=== PATIENT | female | born 1950 | race Caucasian/White ===

== ENCOUNTER 2019-01-09 18:57 | Inpatient (IN) ==
--- NOTE | 2019-01-10 14:29 | Internal Med History&Physical ---
Addendum entered and electronically signed by Raquel Godinez 01/11/19 17:42: Original Note: Date of Encounter: 01/10/19 Time of Encounter: 14:26 Assessment and Plan (1) Acute on chronic diastolic CHF (congestive heart failure) Current visit: No Status: Acute Patient admitted to this facility for rehabilitation due to deconditioning secondary to her CHF. Lungs are clear throughout upper [place] but noted dim inished throughout lower [place]. Patient remains on Xopenex and currently on Diamox and Bumex. Patient continues to have +2 edema from mid thigh and below. We will continue with daily weights. Patient remains on Coumadin at this time which will be managed by pharmacy. Patient awaits physical therapy evaluation. We will continue with current plan of care (2) COPD with exacerbation Current visit: Yes Status: Chronic Admitted from [facility], who treated her for exacerbation of her COPD and CHF. Patient admitted for rehab strengthening due to deconditioning. Currently noted to have slight dypnea after exertion of ambulating >25. Endorses Orthopnea. No productive cough noted. Will continue on current meds and bronchodialators. Continue BIPAP at night and prn for dyspnea. Physical therapy eval pending. (3) Atrial fibrillation Current visit: Yes Status: Chronic Patient continues with irreg HR at 100-[address] on CM and monitor HR. Continue on current meds. Qualifiers: Atrial fibrillation type: persistent Qualified Code(s): I48.1 - Persistent atrial fibrillation (4) GERD (gastroesophageal reflux disease) Current visit: Yes Status: Chronic No acute issues. Continue on PPI. Qualifiers: Esophagitis presence: without esophagitis Qualified Code(s): K21.9 - Gastro-esophageal reflux disease without esophagitis (5) Essential hypertension Current visit: Yes Status: Chronic VSS. Continue on current meds. Internal Medicine - H&P: HPI Chief complaint: COPD Admitted From: Hospital to Hospital Transfer Plans for Post Hospital Care: Home History of present illness: Ms. Olivier is a 68 year old female with a past medical history significant for COPD on 4 L home oxygen, rate controlled atrial fibrillation anticoagulated with warfarin, lower extremity edema, diastolic heart failure, and recent discharge on 12/10/2018 after treatment of diastolic heart failure exacerbation, A. fib with RVR, and lower extremity edema. She has been hospitalized many times of recent for a fluid overload state requiring high-dose diuretics. She has also been on anticoagulation, rate control agents and dofetilide for atrial fibrillation with a previous recent attempt for NANCI cardioversion was deferred due to an abnormal morphology that would have increased her local for an embolic event. She present for evaluation of malaise, fatigue, and shortness of breath. She reports she began "not feeling very well" in the afternoon. When this persisted she called for EMS transport for evaluation. She was discovered to have bradycardia, EMS did administer atropine with no benefit. There was some thoughts about her mistakenly dosing her metoprolol prior to the admission. She was treated over the last two weeks for her exacerbaton of both COPD and CHF. Patient also was noted to continue to have a high HR while at [facility] and required further Tx for her Afib. Patient arrived at this facility for continued rehab for strengthening due to her deconditioning related to the COPD and CHF. She currently appears relaxed and denies any current discomforts or dyspnea. She was observed by Nursing ambulating in the room to the bathroom with a walker and was noted to become slightly SOB after ambulating >25 ft and had a unsteady gait. Patient states th at she was diuresed while at the hospital, but noted to continue to have +2 edema to the lower extremities from mid-thigh and below. Denies any productive cough. Denies any chest discomforts or palpitations. Past Med Surg Social Fam HX - Past Medical History Medical history: asthma, atrial fibrillation, CHF, COPD, GERD, hypertension, migraine Psychiatric history: no psych history - Past Surgical History Surgical History: cholecystectomy, hysterectomy Additional surgical history: tumor removed from back of right ear, heart cath no stent - Social History Smoking Status: Former smoker Smokeless Tobacco Status: No Alcohol use: none Drug use: none - Family History Brother Living Status: Grandfather Family Member Ethnicity: Non- Living Status: Hx Family Cardiac Disorders: Yes (ME, Afib, HTN) Sister Family Member Ethnicity: Non- Living Status: Hx Family Cardiac Disorders: Yes Hx Family Respiratory Disorders: Yes (COPD) Hx Family GI Disorders: Yes (Stomach ulcers) Mother Adopted: No Family Member Ethnicity: Non- Twin of Family Member: Yes, Fraternal Living Status: Hx Family Cardiac Disorders: Yes Hx Family Respiratory Disorders: Yes Hx Family Cancer: No Hx Family GI Disorders: No Hx Family Endocrine Disorder: No Hx Family Neuromuscular Disorders: No Hx Family Neurologic Disorders: No Hx Family HEENT Disorders: No Hx Family Autoimmune Disorders: No Father Adopted: No Family Member Ethnicity: Non- Twin of Family Member: Yes, Fraternal Living Status: Hx Family Cardiac Disorders: Yes (Afib, HTN, ME) Hx Family Respiratory Disorders: Yes Hx Family Cancer: No Hx Family GI Disorders: No Hx Family Endocrine Disorder: No Hx Family Neuromuscular Disorders: No Hx Family Neurologic Disorders: No Hx Family HEENT Disorders: No Hx Family Autoimmune Disorders: No Internal Medicine - H&P: Meds Alendronate Sodium [Fosamax] 70 mg PO WE 02/17/16 [History] Ascorbate Calcium [Vitamin C] 500 mg PO DAILY 02/17/16 [History] Tiotropium [Spiriva] 2 puff PO HS 02/17/16 [History] Oxygen 4 l NS CONT 02/13/17 [History] Fluticasone/Salmeterol [Advair 250-50 Diskus] 1 puff IH BID #1 blst.w.dev 03/08/17 [Rx] Montelukast [Singulair] 10 mg PO DAILY 03/21/17 [History] Calcium Carbonate [Calcium] 600 mg PO DAILY 08/28/17 [History] Acetaminophen/Diphenhydramine [Percogesic 325-12.5 mg Tablet] 2 tab PO HS 11/08/17 [History] Cholecalciferol (D-3) [Vitamin D] 1,000 unit PO DAILY 07/04/18 [History] Lisinopril 2.5 mg PO DAILY 07/04/18 [History] Omeprazole [PriLOSEC] 40 mg PO DAILY #30 cap 09/04/18 [Rx] Ropinirole HCl [Requip Xl] 4 mg PO HS 09/24/18 [History] Dexlansoprazole [Dexilant] 60 mg PO DAILY 10/26/18 [History] Cyanocobalamin (B-12) [Vitamin B12] 1,000 mcg PO DAILY 10/27/18 [History] Dofetilide [Tikosyn] 0.5 mg PO 0900,2100 capsule 11/01/18 [Rx] Ferrous Sulfate 325 mg PO DAILY tablet 11/01/18 [Rx] Diltiazem CD (24hr) [Cardizem CD] 360 mg PO DAILY #60 cap.er.24h 12/06/18 [Rx] Polyethylene Glycol 3350 [MiraLAX] 17 gm PO DAILY PRN powd.pack 12/06/18 [Rx] Warfarin [Coumadin] 5 mg PO DAILY #30 tablet 12/09/18 [Rx] Bumetanide [Bumex] 1 mg PO DAILY #30 tablet 01/10/19 [Rx] Levalbuterol Neb [Xopenex Neb] 0.63 mg IH [id number] #30 vial.neb 01/10/19 [Rx] acetaZOLAMIDE [Diamox] 250 mg PO BID #60 tablet 01/10/19 [Rx] predniSONE [PredniSONE] 40 mg PO DAILY 7 Days #11 tablet 01/10/19 [Rx] Allergy/AdvReac Type Severity Reaction Status Date / Time albuterol Allergy See Verified 10/10/18 17:30 Comments aspirin [ASA] Allergy Difficulty Verified 10/10/18 17:30 Breathing Penicillins Allergy Hives Verified 10/10/18 17:30 Sulfa (Sulfonamide Allergy Rash Verified 10/10/18 17:30 Antibiotics) All Systems PM: A 10-system review of systems was performed and is negative for pertinent findings except as documented above in the HPI. - Constitutional Constitutional: as per HPI, no chills, no fever(s), no night sweats - EENT Eyes: as per HPI, no change in vision, no discharge, no pain, no photophobia Ears: no ear discharge, no ear pain, no tinnitus Nose, mouth and throat: as per HPI, no dysphagia, no nasal discharge, no neck pain, no sore throat - Breasts Breasts: as per HPI - Cardiovascular Cardiovascular ROS IM: as per HPI, irregular heart rhythm, no chest pain, no diaphoresis, no dyspnea, no lightheadedness, no palpitations, no syncope Additional comments: Irreg HR with vent. rate of 100-115 bpm - Respiratory Respiratory: as per HPI, no cough, no dyspnea, no wheezing, no excessive phlegm production - Gastrointestinal Gastrointestinal: as per HPI, no abdominal pain, no diarrhea, no hematemesis, no hematochezia, no melena, no nausea, no vomiting - Genitourinary Genitourinary: as per HPI, no change in urinary stream, no dysuria, no flank pain, no hematuria - Musculoskeletal Musculoskeletal ROS IM: as per HPI, no numbness, no tingling - Integumentary Integumentary IM: as per HPI, no rash, no unusual bruising - Neurological Neurological ROS: as per HPI, no confusion, no convulsions, no focal weakness, no numbness, no tingling, no tremor(s) - Hematologic/Lymphatic Hematologic/Lymphatic: no easy bruising - Head Head exam: Present: atraumatic, normocephalic - Eye Eye exam: Present: PERRL, conjuntiva pink, sclera anicteric Pupils: Present: PERRL - ENT Additional comments: Noted slight coating on tongue of white coating. - Neck Neck exam general surgery: Present: supple, trachea midline. Absent: lymphadenopathy - Respiratory Respiratory exam: Present: CTAB. Absent: accessory muscle use, rales, rhonchi, wheezes Additional comments: Lungs are CTA to upper [place] and diminished basilar ov[place]. Patient is morbidily obese and breath sounds are distant to lower [place]. RR is relaxed. No productive cough - Cardiovascular Cardiovascular exam: Present: irregular rhythm, RRR, +S1, +S2. Absent: diastolic murmur, gallop, rubs, systolic murmur Additional comments: HR is irreg with ventricular rate of 100-115 bpm - GI/Abdominal GI/Abdominal exam: Present: normal bowel sounds, soft, no peritoneal signs. Absent: distended, tenderness - Extremities Exam Extremities exam: Present: pedal edema, warm, radial pulses palpable and symmetrical. Absent: calf tenderness, cyanotic Additional comments: +2 pitting edema to the mid-thigh and below. - Neurological Exam Neurological exam: Present: CN II-XII intact, oriented X3, no focal deficits. Absent: pronater drift, facial droop, speech deficit - Skin Skin exam: Present: dry, intact
[2019-01-10] MEDS: Nystatin SUSP 5 ML UD.LIQ PO SCH ×2 (17:22→21:29)
[2019-01-10] MEDS ORDERED: Warfarin perPT PO PRN (18:00)
[2019-01-10] MEDS ORDERED: *HR* Warfarin 2.5 MG TABLET PO ONE (18:00)
[2019-01-10] MEDS ORDERED: NON-FORMULARY MEDICATION 1 EACH EACH (Acetaminophen/Diphenhydramine [Percogesic 325-12.5 M PO SCH (21:00)
[2019-01-10] MEDS: Acetaminophen 325 MG TABLET PO SCH (21:18)
[2019-01-10] MEDS: acetaZOLAMIDE 250 MG TABLET PO SCH (21:18)
[2019-01-10] MEDS: Tiotropium 18 MCG inhalation IH SCH (21:21)
[2019-01-10] MEDS: ADVAIR IH SCH (21:24)
[2019-01-10] MEDS: Levalbuterol Neb 0.63 MG/3 ML IH SCH (21:26)
[2019-01-10] MEDS: (Ropinirole Hcl [Requip Xl] 4 MG) PO SCH (21:29)
[2019-01-11] MEDS: Levalbuterol Neb 0.63 MG/3 ML IH SCH ×4 (04:21→22:25)
[2019-01-11 07:05] LABS: Eosinophils % 0.3 %; Hematocrit 34.2 % (35.3-44.9); Immature Granulocytes % 0.5 % (0-4); Lymphocytes # 1.1 K/mcL (0.6-4.6); Lymphocytes % 13.9 %; Mean Corpuscular HGB Conc 26.3 g/dL (31.6-35.5); Mean Corpuscular Hemoglobin 23.3 pg (28.0-33.3); Mean Corpuscular Volume 88.4 fL (83.0-100.0); Mean Platelet Volume 11.8 fL (9.4-12.4); Monocytes # 0.7 K/mcL (0.0-1.3); Neutrophils # 6.1 K/mcL (1.6-8.9); Platelet Count 235 K/mcL (140-400); Red Blood Count 3.87 M/mcL (3.82-4.97); Red Cell Distribution Width 16.6 % (11.5-14.5); Segmented Neutrophils % 76.3 %
[2019-01-11 07:07] LABS: INR 2.7; Prothrombin Time 30.2 Seconds (9.4-12.1)
[2019-01-11 07:09] LABS: Activated Partial Thrombo Time 29.2 Seconds (26.0-36.0)
[2019-01-11 07:19] LABS: Calcium 9.5 mg/dL (8.6-10.3); Potassium 3.8 mEq/L (3.5-5.1)
[2019-01-11] MEDS ORDERED: NON-FORMULARY MEDICATION 1 EACH EACH (Omeprazole [Prilosec] 40 MG) PO SCH (09:00)
[2019-01-11] MEDS: Ascorbic Acid 500 MG TABLET PO SCH (09:13)
[2019-01-11] MEDS: Nystatin SUSP 5 ML UD.LIQ PO SCH ×4 (09:13→22:18)
[2019-01-11] MEDS: Bumetanide 1 MG TABLET PO SCH (09:13)
[2019-01-11] MEDS: predniSONE 20 MG TABLET PO SCH (09:13)
[2019-01-11] MEDS: Cholecalciferol (D-3) 1,000 UNIT TABLET PO SCH (09:14)
[2019-01-11] MEDS: Cyanocobalamin (B-12) 1,000 MCG TABLET PO SCH (09:14)
[2019-01-11] MEDS: Nystatin POWDER 30 GM BOTTLE TP SCH (09:14)
[2019-01-11] MEDS: Diltiazem CD (24hr) 180 MG CAPSULE PO SCH (09:14)
[2019-01-11] MEDS: ADVAIR IH SCH ×2 (09:16→22:24)
[2019-01-11] MEDS: acetaZOLAMIDE 250 MG TABLET PO SCH ×2 (09:16→22:19)
--- NOTE | 2019-01-11 17:48 | Internal Med Progress Note ---
Date of Encounter: 01/11/19 Time of Encounter: 13:20 - Subjective Interval history: Assessment and Plan (1) Acute on chronic diastolic CHF (congestive heart failure) Current visit: No Status: Acute Patient admitted to this facility for rehabilitation due to deconditioning secondary to her CHF. Lungs are clear throughout upper [place] but noted diminished throughout lower [place]. Patient remains currently on Diamox and Bumex. Patient continues to have +2 edema from mid thigh and below but this is improved from previous 4 +.. Edema is worsened in legs by her abdominal pannus. Mobility will help. Pt has some muscle cramps in legs when K is low. She has good renal function. Will add daily K 20 meq and follow lytes closely. We will continue with daily weights. Low protein may complicate this. ( see malabsorption below ) Will add glucerna. pt continues to diurese may be able to decrease diuretic She is now on fluid restrict also. Likely has element of Pulmonary Hypertension Her LVEF is ok Patient remains on Coumadin at this time which will be managed by pharmacy. physical therapy as per evaluation. We will continue with current plan of care (2) COPD with exacerbation Current visit: Yes Status: Chronic Pt on Xopenex nebs. Admitted from [place], who treated her for exacerbation of her COPD and CHF. Jennifer ent admitted for rehab strengthening due to deconditioning. Currently noted to have slight dypnea after exertion of ambulating >25. Endorses Orthopnea. No productive cough noted. Will continue on current meds and bronchodialators. Continue BIPAP at night and prn for dyspnea. Physical therapy eval pending. (3) Chronic Oxygen Dependant Severe COPD needing frequent steroid use cushenoid facies and buf hump (4) Hx of ALISIA and repeated routine noncompliance with BiPAP BiPap is in her room available education has been provided Pt voices understanding of issues She has septal deviation from past broken nose ( says from first ) (5) Atrial fibrillation Current visit: Yes Status: Chronic Patient had elevated rate in past. She is currently good with rate 60s to 80s. Continue on current meds include coumadin InR 2.7 Qualifiers: Atrial fibrillation type: persistent Qualified Code(s): I48.1 - Persistent atrial fibrillation (6) nutrient malabsortption, protein deficient, chronic diarrhea, hx prior Sujey and clinical presentation of pancreatic enzyme deficiency. This is complicating her energy and muscle strength and edema. She has been on iron and b12 and calcium adding glucerna once a day start on Pancreatic Enzyme daily discussed with pharmacy 2 caps TID. She remains on ADA Card diet (4) GERD (gastroesophageal reflux disease) Current visit: Yes Status: Chronic She complains of irritation likely from her thrush add nystatin. Continue on PPI. Qualifiers: Esophagitis presence: without esophagitis Qualified Code(s): K21.9 - Gastro-esophageal reflux disease without esophagitis (5) Essential hypertension Current visit: Yes Status: Chronic VSS. Continue on current meds. Interval HX Ms. Olivier is a 68 year old female who was transfer here for deconditioning for Rehab. Overnight she states she did not use bipap but denies other new issues. Says she is feeling somewhat stronger. Her HR has been good. Her mood is improved. She has past medical history significant for COPD on 4 L home oxygen, rate controlled atrial fibrillation anticoagulated with warfarin, chronic lower extremity edema, diastolic heart failure and likley pulmonary hypertension, chronic diarrhea and malnutrition in spite of obesity, and ALISIA. She and recent discharge on 12/10/2018 after treatment of diastolic heart failure exacerbation, A. fib with RVR, and lower extremity edema. She has been hospit alized many times of recent for a fluid overload state requiring high-dose diuretics. She has also been on anticoagulation, rate control agents and dofetilide for atrial fibrillation with a previous recent attempt for NANCI cardioversion was deferred due to an abnormal morphology that would have incre ased her local for an embolic event. EXAM General appears older than stated age. thinning hair and thin skin mild [place] she is oriented and memory intact - ENT Additional comments: Noted slight coating on tongue of white coating. - Neck Neck exam general surgery: thick neck Present: supple, trachea midline. Absent: lymphadenopathy - Respiratory Respiratory exam: Present: CTAB. occasional soft wheeze Absent: accessory muscle use, rales, rhonchi Additional comments: Lungs are CTA to upper [place] and diminished basilar [place]. Patient is morbidily obese and breath sounds are distant to lower [place]. RR is relaxed. No productive cough - Cardiovascular Cardiovascular exam: Present: irregular rhythm, RRR, +S1, +S2. trace systolic murmer Absent: , gallop, rubs Additional comments: HR is irreg with ventricular rate of 70 bpm - GI/Abdominal GI/Abdominal exam: Present: normal bowel sounds, soft, no peritoneal signs. Absent: distended, tenderness - Extremities Exam Extremities exam: Present: pedal edema, warm, radial pulses palpable and symmetrical. Absent: calf tenderness, cyanotic Additional comments: +2 pitting edema to the mid-thigh and below. - Neurological Exam Neurological exam: Present: CN II-XII intact, oriented X3, no focal deficits. Absent: pronater drift, facial droop, speech deficit - Skin Skin exam: Present: dry, intact - Constitutional Vitals: Temp Pulse Resp BP Pulse Ox 98.6 F 104 15 159/89 96 01/11/19 16:20 01/11/19 16:20 01/11/19 16:20 01/11/19 16:20 01/11/19 16:20 Internal Medicine: Result - Labs CBC & Chem 7: 01/11/19 06:35 01/12/19 07:30 Labs: Short CBC 01/11/19 Range/Units 06:35 WBC 8.0 (4.3-11.1) K/mcL Hgb 9.0 L (11.5-15.4) g/dL Hct 34.2 L (35.3-44.9) % Plt Count 235 (140-400) K/mcL Neutrophils # 6.1 (1.6-8.9) K/mcL BMP 01/11/19 06:35 Sodium 143 Potassium 3.8 Chloride 100 Carbon Dioxide 39 H BUN 54 H Creatinine 1.25 H Glucose 155 H Calcium 9.5 - ABG Interpretation ABG results: PT/INR, D-dimer PT 30.2 Seconds (9.4-12.1) H 01/11/19 06:35 Consult Discharge Plan - Plan Referrals: Tonja Lambert, FAMILY SOCIOLOGIST [Primary Care Provider] -
[2019-01-11] MEDS ORDERED: *HR* Warfarin 2.5 MG TABLET PO ONE (19:45)
[2019-01-11] MEDS: Simethicone 80 MG TAB.CHEW PO SCH (22:12)
[2019-01-11] MEDS: Acetaminophen 325 MG TABLET PO SCH (22:17)
[2019-01-11] MEDS: (Ropinirole Hcl [Requip Xl] 4 MG) PO SCH (22:21)
[2019-01-11] MEDS: Tiotropium 18 MCG inhalation IH SCH (22:23)
[2019-01-12] MEDS: Levalbuterol Neb 0.63 MG/3 ML IH SCH ×4 (01:36→23:03)
[2019-01-12 07:51] LABS: INR 2.3; Prothrombin Time 26.4 Seconds (9.4-12.1)
[2019-01-12 07:54] LABS: Activated Partial Thrombo Time 30.2 Seconds (26.0-36.0)
[2019-01-12 08:04] LABS: Calcium 9.6 mg/dL (8.6-10.3); Magnesium 2.5 mg/dL (1.6-2.6); Potassium 3.9 mEq/L (3.5-5.1)
[2019-01-12] MEDS: Cholecalciferol (D-3) 1,000 UNIT TABLET PO SCH (08:34)
[2019-01-12] MEDS: Bumetanide 1 MG TABLET PO SCH (08:34)
[2019-01-12] MEDS: Diltiazem CD (24hr) 180 MG CAPSULE PO SCH (08:34)
[2019-01-12] MEDS: Ascorbic Acid 500 MG TABLET PO SCH (08:34)
[2019-01-12] MEDS: Nystatin SUSP 5 ML UD.LIQ PO SCH ×4 (08:35→23:03)
[2019-01-12] MEDS: predniSONE 20 MG TABLET PO SCH (08:35)
[2019-01-12] MEDS: Simethicone 80 MG TAB.CHEW PO SCH ×3 (08:35→22:51)
[2019-01-12 08:36] LABS: Thyroid Stimulating Hormone 1.894 mcIU/mL (0.340-5.600)
[2019-01-12] MEDS: Cyanocobalamin (B-12) 1,000 MCG TABLET PO SCH (08:36)
[2019-01-12] MEDS: Nystatin POWDER 30 GM BOTTLE TP SCH (08:39)
[2019-01-12] MEDS: acetaZOLAMIDE 250 MG TABLET PO SCH ×2 (08:40→22:54)
[2019-01-12] MEDS: ADVAIR IH SCH ×2 (09:57→22:57)
[2019-01-12 11:11] LABS: Prealbumin 31.3 mg/dL (17.0-34.0)
--- NOTE | 2019-01-12 14:27 | Internal Med Progress Note ---
Date of Encounter: 01/12/19 Time of Encounter: 14:20 - Subjective Interval history: Assessment and Plan (1) Acute on chronic diastolic CHF (congestive heart failure) Current visit: No Status: Acute Patient admitted to this facility for rehabilitation due to deconditioning secondary to her CHF. Lungs are clear throughout upper [place] but noted diminished throughout lower [place]. Patient remains currently on Diamox and Bumex. Patient continues to have +2 edema from mid thigh and below but this is improved from previous 4 +.. Edema is worsened in legs by her abdominal pannus. Mobility will help. Pt has some muscle cramps in legs when K is low. She has good renal function. Will add daily K 20 meq and follow lytes closely. We will continue with daily weights. Low protein may complicate this. ( see malabsorption below ) Will add glucerna. pt continues to diurese may be able to decrease diuretic She is now on fluid restrict also. Likely has element of Pulmonary Hypertension Her LVEF is ok Patient remains on Coumadin at this time which will be managed by pharmacy. physical therapy as per evaluation. We will continue with current plan of care (2) COPD with exacerbation Current visit: Yes Status: Chronic Pt on Xopenex nebs. Admitted from [place], who treated her for exacerbation of her COPD and CHF. Jennifer ent admitted for rehab strengthening due to deconditioning. Currently noted to have slight dypnea after exertion of ambulating >25. Endorses Orthopnea. No productive cough noted. Will continue on current meds and bronchodialators. Continue BIPAP at night and prn for dyspnea. Physical therapy eval pending. (3) Chronic Oxygen Dependant Severe COPD needing frequent steroid use cushenoid facies and buf hump (4) Hx of ALISIA and repeated routine noncompliance with BiPAP BiPap is in her room available education has been provided Pt voices understanding of issues She has septal deviation from past broken nose ( says from first ) (5) Atrial fibrillation Current visit: Yes Status: Chronic Patient had elevated rate in past. She is currently good with rate 60s to 80s. Continue on current meds include coumadin InR 2.7 Qualifiers: Atrial fibrillation type: persistent Qualified Code(s): I48.1 - Persistent atrial fibrillation (6) nutrient malabsortption, protein deficient, chronic diarrhea, hx prior Sujey and clinical presentation of pancreatic enzyme deficiency. This is complicating her energy and muscle strength and edema. She has been on iron and b12 and calcium adding glucerna once a day start on Pancreatic Enzyme daily discussed with pharmacy 2 caps TID. She remains on ADA Card diet (4) GERD (gastroesophageal reflux disease) Current visit: Yes Status: Chronic She complains of irritation likely from her thrush add nystatin. Continue on PPI. Qualifiers: Esophagitis presence: without esophagitis Qualified Code(s): K21.9 - Gastro-esophageal reflux disease without esophagitis (5) Essential hypertension Current visit: Yes Status: Chronic VSS. Continue on current meds. Interval HX Ms. Olivier is a 68 year old female who was transfer here for deconditioning for Rehab. Says she went to bathroom with assist and walker. Overnight she states she did not use bipap but denies other new issues. Says she is feeling somewhat stronger. Her HR has been good. Her mood is improved. Edema slight improved BM slight less watery She has past medical history significant for COPD on 4 L home oxygen, rate controlled atrial fibrillation anticoagulated with warfarin, chronic lower extremity edema, diastolic heart failure and likley pulmonary hypertension, chronic diarrhea and malnutrition in spite of obesity, and ALISIA. She and recent discharge on 12/10/2018 after treatment of diastolic heart failure exacerbation, A. fib with RVR, and lower extremity edema. She has been hospitalized many times of recent for a fluid overload state requiring high-dose diuretics. She has also been on anticoagulation, rate control agents and dofetilide for atrial fibrillation with a previous recent attempt for NANCI cardioversion was deferred due to an abnormal morphology that would have increased her local for an embolic event. EXAM General appears older than stated age. thinning hair and thin skin mild YOMBA SHOSHONE she is oriented and memory intact - Neck Neck exam general surgery: thick neck Present: supple, trachea midline. A bsent: lymphadenopathy - Respiratory Respiratory exam: Present: CTAB. occasional soft wheeze Absent: accessory muscle use, rales, rhonchi Additional comments: Lungs are CTA to upper [place] and diminished basilar [place]. Patient is m orbidily obese and breath sounds are distant to lower [place]. RR is relaxed. No productive cough - Cardiovascular Cardiovascular exam: Present: irregular rhythm, RRR, +S1, +S2. trace systolic murmer Absent: , gallop, rubs Additional comments: HR is irreg with ventricular rate of 70 bpm - GI/Abdominal GI/Abdominal exam: Present: normal bowel sounds, soft, no peritoneal signs. Absent: distended, tenderness - Extremities Exam Extremities exam: Present: pedal edema, warm, radial pulses palpable and symmetrical. Absent: calf tenderness, cyanotic Additional comments: +2 pitting edema to the mid-thigh and below. - Neurological Exam Neurological exam: Present: CN II-XII intact, oriented X3, no focal deficits. Absent: pronater drift, facial droop, speech deficit - Skin Skin exam: Present: dry, intact - Constitutional Vitals: Temp Pulse Resp BP Pulse Ox 98.2 F 59 20 162/74 94 01/12/19 08:21 01/12/19 08:21 01/12/19 09:59 01/12/19 08:21 01/12/19 09:59 Internal Medicine: Result - Labs CBC & Chem 7: 01/11/19 06:35 01/12/19 07:30 Labs: BMP 01/12/19 07:30 Sodium 142 Potassium 3.9 Chloride 100 Carbon Dioxide 38 H BUN 47 H Creatinine 1.17 Glucose 223 H Calcium 9.6 - ABG Interpretation ABG results: PT/INR, D-dimer PT 26.4 Seconds (9.4-12.1) H 01/12/19 07:30 Consult Discharge Plan - Plan Referrals: Tonja Lambert BIOD[employer] ENGINEERING MANAGER [Primary Care Provider] -
[2019-01-12] MEDS: Lactobacillus 1 EACH CAP.SPRINK PO SCH (15:15)
[2019-01-12] MEDS ORDERED: *HR* Warfarin 5 MG TABLET PO ONE (18:00)
[2019-01-12] MEDS: Acetaminophen 325 MG TABLET PO SCH (22:50)
[2019-01-12] MEDS: (Ropinirole Hcl [Requip Xl] 4 MG) PO SCH (22:53)
[2019-01-12] MEDS: Tiotropium 18 MCG inhalation IH SCH (22:56)
[2019-01-13] MEDS: Levalbuterol Neb 0.63 MG/3 ML IH SCH ×4 (05:01→21:08)
[2019-01-13 05:17] LABS: Eosinophils % 0.3 %; Hematocrit 32.9 % (35.3-44.9); Immature Granulocytes % 0.6 % (0-4); Lymphocytes # 0.7 K/mcL (0.6-4.6); Lymphocytes % 9.3 %; Mean Corpuscular HGB Conc 27.4 g/dL (31.6-35.5); Mean Corpuscular Hemoglobin 23.7 pg (28.0-33.3); Mean Corpuscular Volume 86.6 fL (83.0-100.0); Mean Platelet Volume 12.1 fL (9.4-12.4); Monocytes # 0.7 K/mcL (0.0-1.3); Monocytes % 8.4 %; Neutrophils # 6.5 K/mcL (1.6-8.9); Platelet Count 222 K/mcL (140-400); Red Cell Distribution Width 17.1 % (11.5-14.5); Segmented Neutrophils % 81.4 %
[2019-01-13 05:20] LABS: INR 2.3; Prothrombin Time 25.4 Seconds (9.4-12.1)
[2019-01-13 05:23] LABS: Activated Partial Thrombo Time 26.4 Seconds (26.0-36.0)
[2019-01-13 05:32] LABS: Calcium 9.5 mg/dL (8.6-10.3); Potassium 4.4 mEq/L (3.5-5.1)
[2019-01-13] MEDS: Lactobacillus 1 EACH CAP.SPRINK PO SCH (10:02)
[2019-01-13] MEDS: Cyanocobalamin (B-12) 1,000 MCG TABLET PO SCH (10:03)
[2019-01-13] MEDS: Diltiazem CD (24hr) 180 MG CAPSULE PO SCH (10:03)
[2019-01-13] MEDS: Ascorbic Acid 500 MG TABLET PO SCH (10:03)
[2019-01-13] MEDS: Bumetanide 1 MG TABLET PO SCH (10:03)
[2019-01-13] MEDS: predniSONE 20 MG TABLET PO SCH (10:03)
[2019-01-13] MEDS: Simethicone 80 MG TAB.CHEW PO SCH ×3 (10:03→20:59)
[2019-01-13] MEDS: Cholecalciferol (D-3) 1,000 UNIT TABLET PO SCH (10:04)
[2019-01-13] MEDS: Nystatin SUSP 5 ML UD.LIQ PO SCH ×4 (10:04→21:05)
[2019-01-13] MEDS: Nystatin POWDER 30 GM BOTTLE TP SCH (10:12)
[2019-01-13] MEDS: acetaZOLAMIDE 250 MG TABLET PO SCH (10:13)
[2019-01-13] MEDS: ADVAIR IH SCH ×2 (10:22→21:00)
--- NOTE | 2019-01-13 14:03 | Internal Med Progress Note ---
Addendum entered and electronically signed by Radhames Victor MD 01/13/19 16:42: I have personally performed a face to face evaluation on this patient. I have r eviewed and agree with the care plan. History and Exam by me shows: Patient is improved in terms of nausea. She is feeling better over the last couple of days. She feels that her breathing is stable but she is concerned about it and would like to be better, "like a year ago." Bowels have been functioning well. I discussed stressors with her and her , at length. The largest is finding physical therapy for her as of January when they move to [facility]. Discussed care with other providers and/or nursing. Patient has no complaint of chest discomfort, dyspnea, orthopnea, palpitations, nausea or vomiting, constipation or diarrhea, other changes in bowel habits, difficulty with urination, rash or itching, or other new complaints, except as mentioned above. Review of systems is otherwise negative. Examination: (Except as mentioned above): General: In no apparent distress. Alert and oriented 3. Nondiaphoretic. She is wearing an oxygen cannula at 2 L/m. Head: Atraumatic and normocephalic. Respiratory: No use of accessory muscles. Lungs are clear throughout. Normal airflow. Cardiovascular: Regular rate and rhythm without murmur appreciated. Abdomen: Bowel sounds are normal. No hepatosplenomegaly mass or tenderness appreciated. Morbidly obese and therefore difficult to palpate deeply. Patient is examined upright in chair and this also limits exam. Extremities: No cyanosis clubbing or edema. Skin: Warm and non-diaphoretic with no new lesions noted. Original Note: Date of Encounter: 01/13/19 Time of Encounter: 13:59 - Assessment and plan (1) Atrial fibrillation Current Visit: Yes Status: Acute Assessment and plan: Rate and rhythm stable. Continue Coumadin. Qualifiers: Atrial fibrillation type: paroxysmal Qualified Code(s): I48.0 - Paroxysmal atrial fibrillation (2) Morbid obesity with BMI of 60.0-69.9, adult Current Visit: Yes Status: Chronic (3) Acute on chronic diastolic CHF (congestive heart failure) Current Visit: Yes Status: Acute Assessment and plan: Improving. Monitor labs. Monitor for decompensation. Continue Diamox and bumex (4) COPD (chronic obstructive pulmonary disease) Current Visit: Yes Status: Chronic Assessment and plan: Stable. Continue oxygen 4 L per nasal cannula. Continue BiPAP at night. Qualifiers: COPD type: COPD with acute exacerbation Qualified Code(s): J44.1 - Chronic obstructive pulmonary disease with (acute) exacerbation - Time Spent With Patient less than 15 minutes - Subjective Interval history: Patient is participating with therapy. Her heart rate does increase with exertion but recovers after rest breaks. Patient requiring several rest breaks through his therapy session. Maintaining O2 sats with oxygen per nasal cannula. is at bedside. Patient wearing BiPAP at night. On chronic O2 at 4 L at home. Denies chest pain, shortness of breath, fever, chills, nausea vomiting or diarrhea. States bowels are moving as normal. - Constitutional Vitals: Temp Pulse Resp BP Pulse Ox 98.9 F 81 14 152/78 97 01/13/19 07:19 01/13/19 07:19 01/13/19 07:19 01/13/19 07:19 01/13/19 07:19 General appearance: Present: A&O X 3, morbidly obese, pleasant, no acute distress, answers questions appropriately - Head Head exam: Present: atraumatic, normocephalic - Eye Eye exam: Present: PERRL, conjuntiva pink, sclera anicteric Pupils: Present: PERRL - Neck Neck exam general surgery: Present: supple, trachea midline. Absent: lymphadenopathy - Respiratory Respiratory exam: Present: CTAB. Absent: accessory muscle use, rales, rhonchi, wheezes - Cardiovascular Cardiovascular exam: Present: irregular rhythm, +S1, +S2. Absent: diastolic murmur, gallop, rubs, systolic murmur - GI/Abdominal GI/Abdominal exam: Present: normal bowel sounds, soft, no peritoneal signs. Absent: distended, tenderness - Extremities Exam Extremities exam: Present: warm, radial pulses palpable and symmetrical. Absent: calf tenderness, cyanotic, pedal edema Additional comments: 1+ bilateral lower extremity pitting edema. - Neurological Exam Neurological exam: Present: CN II-XII intact, oriented X3, no focal deficits. Absent: pronater drift, facial droop, speech deficit - Skin Skin exam: Present: dry, intact Internal Medicine: Result - Labs CBC & Chem 7: 01/13/19 04:50 01/13/19 04:50 Labs: Short CBC 01/13/19 Range/Units 04:50 WBC 8.0 (4.3-11.1) K/mcL Hgb 9.0 L (11.5-15.4) g/dL Hct 32.9 L (35.3-44.9) % Plt Count 222 (140-400) K/mcL Neutrophils # 6.5 (1.6-8.9) K/mcL BMP 01/13/19 04:50 Sodium 142 Potassium 4.4 Chloride 101 Carbon Dioxide 36 H BUN 47 H Creatinine 1.25 H Glucose 226 H Calcium 9.5 - ABG Interpretation ABG results: PT/INR, D-dimer PT 25.4 Seconds (9.4-12.1) H 01/13/19 04:50 Consult Discharge Plan - Plan Referrals: Tonja Lambert, FACTORY HAND [Primary Care Provider] -
[2019-01-13] MEDS ORDERED: Dextrose 4 GM Chewable Tablets PO PRN ×2 (15:05)
[2019-01-13] MEDS ORDERED: *HR* Dextrose 50 % in Water (Syg) 50 ML SYRINGE IVP PRN (15:05)
[2019-01-13] MEDS ORDERED: D5% in Water 1,000 ML IVC PRN (15:05)
[2019-01-13] MEDS ORDERED: Dextrose Gel 15 GM/37.5 ML TUBE PO PRN ×2 (15:05)
[2019-01-13] MEDS: Insulin LISPRO 300 UNITS/3 ML VIAL SQ SCH ×2 (17:29→21:02)
[2019-01-13] MEDS ORDERED: *HR* Warfarin 5 MG TABLET PO ONE (18:00)
[2019-01-13] MEDS: Tiotropium 18 MCG inhalation IH SCH (21:00)
[2019-01-13] MEDS: (Ropinirole Hcl [Requip Xl] 4 MG) PO SCH (21:01)
[2019-01-13] MEDS: Acetaminophen 325 MG TABLET PO SCH (21:04)
[2019-01-14] MEDS: acetaZOLAMIDE 250 MG TABLET PO SCH ×3 (01:17→20:38)
[2019-01-14] MEDS: Levalbuterol Neb 0.63 MG/3 ML IH SCH ×4 (05:42→21:37)
[2019-01-14 07:09] LABS: Hemoglobin 8.9 g/dL (11.5-15.4); Mean Corpuscular Hemoglobin 23.5 pg (28.0-33.3); Mean Corpuscular Volume 87.1 fL (83.0-100.0); Mean Platelet Volume 11.8 fL (9.4-12.4); Platelet Count 233 K/mcL (140-400); Red Blood Count 3.79 M/mcL (3.82-4.97); Red Cell Distribution Width 17.1 % (11.5-14.5)
[2019-01-14 07:13] LABS: INR 2.2; Prothrombin Time 24.3 Seconds (9.4-12.1)
[2019-01-14 07:15] LABS: Activated Partial Thrombo Time 28.7 Seconds (26.0-36.0)
[2019-01-14] MEDS: Diltiazem CD (24hr) 180 MG CAPSULE PO SCH (07:59)
[2019-01-14] MEDS: Simethicone 80 MG TAB.CHEW PO SCH ×3 (07:59→20:39)
[2019-01-14] MEDS: Nystatin SUSP 5 ML UD.LIQ PO SCH ×4 (08:00→20:39)
[2019-01-14] MEDS: Lactobacillus 1 EACH CAP.SPRINK PO SCH (08:00)
[2019-01-14] MEDS: Cyanocobalamin (B-12) 1,000 MCG TABLET PO SCH (08:00)
[2019-01-14] MEDS: Bumetanide 1 MG TABLET PO SCH (08:00)
[2019-01-14] MEDS: Ascorbic Acid 500 MG TABLET PO SCH (08:00)
[2019-01-14] MEDS: predniSONE 20 MG TABLET PO SCH (08:00)
[2019-01-14] MEDS: Cholecalciferol (D-3) 1,000 UNIT TABLET PO SCH (08:01)
[2019-01-14] MEDS: Nystatin POWDER 30 GM BOTTLE TP SCH (08:01)
[2019-01-14] MEDS: Insulin LISPRO 300 UNITS/3 ML VIAL SQ SCH ×4 (08:02→20:39)
[2019-01-14] MEDS: ADVAIR IH SCH ×2 (09:18→21:39)
--- NOTE | 2019-01-14 13:34 | Internal Med Progress Note ---
Date of Encounter: 01/14/19 Time of Encounter: 13:32 - Assessment and plan (1) Acute on chronic diastolic CHF (congestive heart failure) Current Visit: Yes Status: Acute Assessment and plan: Patient continues to have fine posterior rales to lower [place]. Respiratory effort appears relaxed. Patient continues to have dyspnea with exertion. We will continue patient on current medications to include use of this BiPAP at night. We will continue on physical therapy. (2) COPD with exacerbation Current Visit: Yes Status: Chronic Assessment and plan: Patient with fine rales heard to posterior lower feels otherwise upper [place] are clear. No productive cough noted. Continued use of BiPAP at night. We will continue with current plan of care (3) Atrial fibrillation Current Visit: Yes Status: Chronic Assessment and plan: No acute issues. Heart rate remains irregular but controlled less than 100 controlled rate. We will continue on current medications. Qualifiers: Atrial fibrillation type: persistent Qualified Code(s): I48.1 - Persistent atrial fibrillation (4) GERD (gastroesophageal reflux disease) Current Visit: Yes Status: Chronic Assessment and plan: No acute issues. Patient denies any reflux. We will continue with current medications Qualifiers: Esophagitis presence: without esophagitis Qualified Code(s): K21.9 - Gastro-esophageal reflux disease without esophagitis (5) Essential hypertension Current Visit: Yes Status: Chronic Assessment and plan: Vital signs stable. We will continue on current medications - Time Spent With Patient less than 15 minutes - Subjective Interval history: Patient appears relaxed and denies any current discomforts or shortness of breath. - Constitutional Vitals: Temp Pulse Resp BP Pulse Ox 98.4 F 85 18 112/71 100 01/14/19 07:41 01/14/19 07:41 01/14/19 07:41 01/14/19 07:41 01/14/19 07:41 General appearance: Present: A&O X 3, morbidly obese, pleasant, no acute distress, answers questions appropriately - Head Head exam: Present: atraumatic, normocephalic - Eye Eye exam: Present: PERRL, conjuntiva pink, sclera anicteric Pupils: Present: PERRL - Neck Neck exam general surgery: Present: supple, trachea midline. Absent: lymphadenopathy - Respiratory Respiratory exam: Present: CTAB, rales. Absent: accessory muscle use, rhonchi, wheezes Additional comments: Lungs are clear throughout upper [place] with scattered fine rales heard to out lower posterior [place]. Respiratory effort appears relaxed. Cough noted. - Cardiovascular Cardiovascular exam: Present: RRR, +S1, +S2. Absent: diastolic murmur, gallop, rubs, systolic murmur - GI/Abdominal GI/Abdominal exam: Present: normal bowel sounds, soft, no peritoneal signs. Absent: distended, tenderness - Extremities Exam Extremities exam: Present: pedal edema, warm, radial pulses palpable and symmetrical. Absent: calf tenderness, cyanotic - Neurological Exam Neurological exam: Present: CN II-XII intact, oriented X3, no focal deficits. Absent: pronater drift, facial droop, speech deficit - Skin Skin exam: Present: dry, intact Internal Medicine: Result - Labs CBC & Chem 7: 01/14/19 06:45 01/13/19 04:50 Labs: Short CBC 01/14/19 Range/Units 06:45 WBC 8.2 (4.3-11.1) K/mcL Hgb 8.9 L (11.5-15.4) g/dL Hct 33.0 L (35.3-44.9) % Plt Count 233 (140-400) K/mcL - ABG Interpretation ABG results: PT/INR, D-dimer PT 24.3 Seconds (9.4-12.1) H 01/14/19 06:45 Consult Discharge Plan - Plan Referrals: Tonja Lambert, SHANK PAPERER [Primary Care Provider] -
[2019-01-14] MEDS: Acetaminophen 325 MG TABLET PO PRN (14:47)
[2019-01-14] MEDS ORDERED: *HR* Warfarin 5 MG TABLET PO ONE (18:00)
[2019-01-14] MEDS: (Ropinirole Hcl [Requip Xl] 4 MG) PO SCH (20:42)
[2019-01-14] MEDS: Tiotropium 18 MCG inhalation IH SCH (21:39)
[2019-01-15] MEDS: Levalbuterol Neb 0.63 MG/3 ML IH SCH ×4 (03:19→21:12)
[2019-01-15 05:56] LABS: Hematocrit 34.2 % (35.3-44.9); Hemoglobin 9.3 g/dL (11.5-15.4); Mean Corpuscular HGB Conc 27.2 g/dL (31.6-35.5); Mean Corpuscular Hemoglobin 23.5 pg (28.0-33.3); Mean Corpuscular Volume 86.6 fL (83.0-100.0); Mean Platelet Volume 11.9 fL (9.4-12.4); Platelet Count 245 K/mcL (140-400); Red Blood Count 3.95 M/mcL (3.82-4.97); Red Cell Distribution Width 17.4 % (11.5-14.5)
[2019-01-15 06:01] LABS: INR 2.1; Prothrombin Time 24.2 Seconds (9.4-12.1)
[2019-01-15] MEDS: Nystatin SUSP 5 ML UD.LIQ PO SCH ×4 (07:59→21:08)
[2019-01-15] MEDS: Cholecalciferol (D-3) 1,000 UNIT TABLET PO SCH (08:01)
[2019-01-15] MEDS: Lactobacillus 1 EACH CAP.SPRINK PO SCH (08:01)
[2019-01-15] MEDS: Diltiazem CD (24hr) 180 MG CAPSULE PO SCH (08:01)
[2019-01-15] MEDS: Bumetanide 1 MG TABLET PO SCH (08:01)
[2019-01-15] MEDS: Cyanocobalamin (B-12) 1,000 MCG TABLET PO SCH (08:02)
[2019-01-15] MEDS: Simethicone 80 MG TAB.CHEW PO SCH ×3 (08:02→21:08)
[2019-01-15] MEDS: predniSONE 20 MG TABLET PO SCH (08:02)
[2019-01-15] MEDS: Ascorbic Acid 500 MG TABLET PO SCH (08:02)
[2019-01-15] MEDS: acetaZOLAMIDE 250 MG TABLET PO SCH ×2 (08:03→21:08)
[2019-01-15] MEDS: Insulin LISPRO 300 UNITS/3 ML VIAL SQ SCH ×4 (08:06→21:14)
[2019-01-15] MEDS: Nystatin POWDER 30 GM BOTTLE TP SCH (08:07)
[2019-01-15] MEDS: ADVAIR IH SCH ×2 (11:00→21:11)
--- NOTE | 2019-01-15 14:12 | Psychological Evaluation ---
Date of Encounter: 01/15/19 Time of Encounter: 10:00 History of Present Illness History of present illness: Ms. Olivier is a 68 year old female admitted to this facility for rehabilitation due to deconditioning secondary to her CHF. Past Medical History - Psychiatric History Psychiatric history: Reports: no psych history Home Medications and Allergies RX: Alendronate Sodium [Fosamax] 70 mg PO WE 02/17/16 [History] RX: Ascorbate Calcium [Vitamin C] 500 mg PO DAILY 02/17/16 [History] RX: Tiotropium [Spiriva] 2 puff PO HS 02/17/16 [History] RX: Oxygen 4 l NS CONT 02/13/17 [History] RX: Fluticasone/Salmeterol [Advair 250-50 Diskus] 1 puff IH BID #1 blst.w.dev 03/08/17 [Rx] RX: Montelukast [Singulair] 10 mg PO DAILY 03/21/17 [History] RX: Calcium Carbonate [Calcium] 600 mg PO DAILY 08/28/17 [History] RX: Acetaminophen/Diphenhydramine [Percogesic 325-12.5 mg Tablet] 2 tab PO HS 11/08/17 [History] RX: Cholecalciferol (D-3) [Vitamin D] 1,000 unit PO DAILY 07/04/18 [History] RX: Lisinopril 2.5 mg PO DAILY 07/04/18 [History] RX: Omeprazole [PriLOSEC] 40 mg PO DAILY #30 cap 09/04/18 [Rx] RX: Ropinirole HCl [Requip Xl] 4 mg PO HS 09/24/18 [History] RX: Dexlansoprazole [Dexilant] 60 mg PO DAILY 10/26/18 [History] RX: Cyanocobalamin (B-12) [Vitamin B12] 1,000 mcg PO DAILY 10/27/18 [History] RX: Dofetilide [Tikosyn] 0.5 mg PO 0900,2100 capsule 11/01/18 [Rx] RX: Ferrous Sulfate 325 mg PO DAILY tablet 11/01/18 [Rx] RX: Diltiazem CD (24hr) [Cardizem CD] 360 mg PO DAILY #60 cap.er.24h 12/06/18 [Rx] RX: Polyethylene Glycol 3350 [MiraLAX] 17 gm PO DAILY PRN powd.pack 12/06/18 [R x] RX: Warfarin [Coumadin] 5 mg PO DAILY #30 tablet 12/09/18 [Rx] RX: Bumetanide [Bumex] 1 mg PO DAILY #30 tablet 01/10/19 [Rx] RX: Levalbuterol Neb [Xopenex Neb] 0.63 mg IH [id number] #30 vial.neb 01/10/19 [Rx] RX: acetaZOLAMIDE [Diamox] 250 mg PO BID #60 tablet 01/10/19 [Rx] RX: predniSONE [PredniSONE] 40 mg PO DAILY 7 Days #11 tablet 01/10/19 [Rx] Allergy/AdvReac Type Severity Reaction Status Date / Time albuterol Allergy See Verified 10/10/18 17:30 Comments aspirin [ASA] Allergy Difficulty Verified 10/10/18 17:30 Breathing Penicillins Allergy Hives Verified 10/10/18 17:30 Sulfa (Sulfonamide Allergy Rash Verified 10/10/18 17:30 Antibiotics) Social History - Social History Social History: 4 times. Currently in 4th marriage of 14 years. Has 2 adult children (met son) and 4 adult step children.She lives with and has had increase in health issues since move to [place] 2014 after leaving [place]. 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 informed pt that they will be moving to [place] 01/24/19 for his job. Her son has offered for her to stay with his family if she would need to stay in [place] for medical issues. - Tobacco Use Smoking Status: Never smoker - Alcohol Use Alcohol Use: none - Drug Use Drug Use: none Cognitive/Emotional Assessment - Cognitive Ability Abstract Thinking Ability: No Deficits Noted Attention Span Ability: Capable of Focused Attention Language Function Ability: No Deficits Noted Verbal Communication Ability: Conversational Style Problem Solving Ability: Able To Solve Simple Problems Level of Alertness: Alert Memory Description: Recent Intact, Remote Intact Orientation: Person, Place, Time Ability to Follow Directions: Good Speech Pattern: Normal rate Thought Process: Intact - Emotional Status Mood Description: Angry, Depressed Affect Description: Congruent with mood Coping Ability: Unsure about ability to cope Assessment & Plan - Diagnosis (1) Adjustment disorder with depressed mood - Prognosis Prognosis: Fair - Treatment Plan Treatment Plan/Recommendations: Discussed initiating an antidepressant and agreeable. Procedures - Participants Therapy Participant: Patient, Family - Session Time Session Start Time: 10:00 Session Stop Time: 10:30
[2019-01-15] MEDS ORDERED: NON-FORMULARY MEDICATION 1 EACH EACH (Alendronate Sodium [Fosamax] 70 MG) PO SCH (16:07)
--- NOTE | 2019-01-15 16:13 | Internal Med Progress Note ---
Addendum entered and electronically signed by Raquel Godinez 01/16/19 14:35: I have personally performed a face to face evaluation on this patient. I have reviewed and agree with the care plan. History and As previously discussed, pt is aware of importance of bipap. She has been severely noncompliant. She does today have daytime sleepiness . She says her energy is better and less muscle cramping. Original Note: Date of Encounter: 01/15/19 Time of Encounter: 16:12 - Assessment and plan (1) Atrial fibrillation Current Visit: Yes Status: Acute Assessment and plan: Rate and rhythm stable. Continue Coumadin. Qualifiers: Atrial fibrillation type: paroxysmal Qualified Code(s): I48.0 - Paroxysmal atrial fibrillation (2) Morbid obesity with BMI of 60.0-69.9, adult Current Visit: Yes Status: Chronic (3) Acute on chronic diastolic CHF (congestive heart failure) Current Visit: Yes Status: Acute Assessment and plan: Improving. Monitor labs. Monitor for decompensation. Continue Diamox and bumex (4) COPD (chronic obstructive pulmonary disease) Current Visit: Yes Status: Chronic Assessment and plan: Stable. Continue oxygen 4 L per nasal cannula. Continue BiPAP at night. Qualifiers: COPD type: COPD with acute exacerbation Qualified Code(s): J44.1 - Chronic obstructive pulmonary disease with (acute) exacerbation - Time Spent With Patient less than 15 minutes - Subjective Interval history: Patient is participating with therapy. ambulating 120' with SBA. Patient requiring several rest breaks through his therapy session. Maintaining O2 sats with oxygen per nasal cannula. Patient wearing BiPAP at night. On chronic O2 at 4 L at home. Denies chest pain, shortness of breath, fever, chills, nausea vomiting or diarrhea. States bowels are moving as normal. - Constitutional Vitals: Temp Pulse Resp BP Pulse Ox 97.7 F 103 18 148/82 99 01/15/19 06:36 01/15/19 06:36 01/15/19 11:03 01/15/19 06:36 01/15/19 11:03 General appearance: Present: A&O X 3, morbidly obese, pleasant, no acute distress, answers questions appropriately - Head Head exam: Present: atraumatic, normocephalic - Eye Eye exam: Present: PERRL, conjuntiva pink, sclera anicteric Pupils: Present: PERRL - Neck Neck exam general surgery: Present: supple, trachea midline. Absent: lymphadenopathy - Respiratory Respiratory exam: Present: CTAB. Absent: accessory muscle use, rales, rhonchi, wheezes - Cardiovascular Cardiovascular exam: Present: RRR, +S1, +S2. Absent: diastolic murmur, gallop, rubs, systolic murmur - GI/Abdominal GI/Abdominal exam: Present: normal bowel sounds, soft, no peritoneal signs. Absent: distended, tenderness - Extremities Exam Extremities exam: Present: pedal edema, warm, radial pulses palpable and symmetrical. Absent: calf tenderness, cyanotic Additional comments: 1+ pitting BLE - Neurological Exam Neurological exam: Present: CN II-XII intact, oriented X3, no focal deficits. Absent: pronater drift, facial droop, speech deficit - Skin Skin exam: Present: dry, intact Internal Medicine: Result - Labs CBC & Chem 7: 01/15/19 05:30 01/13/19 04:50 Labs: Short CBC 01/15/19 Range/Units 05:30 WBC 8.7 (4.3-11.1) K/mcL Hgb 9.3 L (11.5-15.4) g/dL Hct 34.2 L (35.3-44.9) % Plt Count 245 (140-400) K/mcL - ABG Interpretation ABG results: PT/INR, D-dimer PT 24.2 Seconds (9.4-12.1) H 01/15/19 05:30 Consult Discharge Plan - Plan Referrals: Tonja Lambert DESIZING PAD OPERATOR [Primary Care Provider] -
[2019-01-15] MEDS ORDERED: *HR* Warfarin 7.5 MG TABLET PO SCH (18:00)
[2019-01-15] MEDS: (Ropinirole Hcl [Requip Xl] 4 MG) PO SCH (21:09)
[2019-01-15] MEDS: Tiotropium 18 MCG inhalation IH SCH (21:12)
[2019-01-16] MEDS: Levalbuterol Neb 0.63 MG/3 ML IH SCH ×4 (03:10→21:04)
[2019-01-16 06:00] LABS: Hematocrit 33.1 % (35.3-44.9); Mean Corpuscular HGB Conc 27.2 g/dL (31.6-35.5); Mean Corpuscular Hemoglobin 23.3 pg (28.0-33.3); Mean Corpuscular Volume 85.8 fL (83.0-100.0); Mean Platelet Volume 11.7 fL (9.4-12.4); Platelet Count 228 K/mcL (140-400); Red Blood Count 3.86 M/mcL (3.82-4.97); Red Cell Distribution Width 17.5 % (11.5-14.5)
[2019-01-16 06:12] LABS: INR 2.5; Prothrombin Time 27.7 Seconds (9.4-12.1)
[2019-01-16 06:14] LABS: Activated Partial Thrombo Time 28.7 Seconds (26.0-36.0)
[2019-01-16] MEDS: Insulin LISPRO 300 UNITS/3 ML VIAL SQ SCH ×4 (08:53→22:50)
[2019-01-16] MEDS: Lactobacillus 1 EACH CAP.SPRINK PO SCH (08:55)
[2019-01-16] MEDS: predniSONE 20 MG TABLET PO SCH (08:55)
[2019-01-16] MEDS: Bumetanide 1 MG TABLET PO SCH (08:55)
[2019-01-16] MEDS: acetaZOLAMIDE 250 MG TABLET PO SCH ×2 (08:56→22:47)
[2019-01-16] MEDS: Diltiazem CD (24hr) 180 MG CAPSULE PO SCH (08:56)
[2019-01-16] MEDS: Simethicone 80 MG TAB.CHEW PO SCH ×3 (08:56→22:47)
[2019-01-16] MEDS: Cholecalciferol (D-3) 1,000 UNIT TABLET PO SCH (08:56)
[2019-01-16] MEDS: Cyanocobalamin (B-12) 1,000 MCG TABLET PO SCH (08:56)
[2019-01-16] MEDS: Ascorbic Acid 500 MG TABLET PO SCH (08:57)
[2019-01-16] MEDS: Nystatin POWDER 30 GM BOTTLE TP SCH (09:00)
[2019-01-16] MEDS ORDERED: Chloraseptic Spray 177 ML BOTTLE MM PRN (09:54)
[2019-01-16] MEDS: Nystatin SUSP 5 ML UD.LIQ PO SCH ×4 (10:44→22:47)
[2019-01-16] MEDS: Acetaminophen 325 MG TABLET PO PRN ×2 (10:45→22:49)
[2019-01-16] MEDS: ADVAIR IH SCH ×2 (10:46→21:05)
--- NOTE | 2019-01-16 11:17 | Internal Med Progress Note ---
Addendum entered and electronically signed by Raquel Godinez 01/16/19 14:33: I have personally performed a face to face evaluation on this patient. I have reviewed and agree with the care plan. History and As previously discussed, pt is aware of importance of bipap. She has been severely noncompliant. Yesterday noted daytime sleepiness somewhat better today She has bipap available in her room and is encouraged to use every time for sleep . She re ports her diarrhea is improved with pancreatic enzymes and improved diet. She is feeling stronger. Original Note: Date of Encounter: 01/16/19 Time of Encounter: 11:13 - Assessment and plan (1) Acute on chronic diastolic CHF (congestive heart failure) Current Visit: Yes Status: Acute Assessment and plan: Patient continues to have fine posterior rales to lower [place]. Respiratory effort appears relaxed. Patient continues to have dyspnea with exertion. We will continue patient on current medications to include use of this BiPAP at night. Patient has been noncompliant with BiPAP at night, but states that she will continue to try. Patient being provided a BiPAP at home and will try different mask to help her remain compliant. We will continue on physical therapy. (2) COPD with exacerbation Current Visit: Yes Status: Chronic Assessment and plan: Patient with fine rales heard to posterior lower feels otherwise upper [place] are clear. No productive cough noted. Continued use of BiPAP at night. We will continue with current plan of care (3) Atrial fibrillation Current Visit: Yes Status: Chronic Assessment and plan: No acute issues. Heart rate remains irregular but controlled less than 100 controlled rate. We will continue on current medications. Qualifiers: Atrial fibrillation type: persistent Qualified Code(s): I48.1 - Persistent atrial fibrillation (4) GERD (gastroesophageal reflux disease) Current Visit: Yes Status: Chronic Assessment and plan: No acute issues. Patient denies any reflux. We will continue with current medications Qualifiers: Esophagitis presence: without esophagitis Qualified Code(s): K21.9 - Gastro-esophageal reflux disease without esophagitis (5) Essential hypertension Current Visit: Yes Status: Chronic Assessment and plan: Vital signs stable. We will continue on current medications - Time Spent With Patient less than 15 minutes - Subjective Interval history: Patient appears relaxed and denies any current discomforts or shortness of breath. Nursing reports patient has been noncompliant with wearing BiPAP at night. Patient states that she has difficulty with the mask and that she will try again this evening. Patient states that she will have a BiPAP delivered to her and that she was told the [employer] company we will supply her with several masks to try. Importance of using BiPAP at night was discussed and patient stated understanding. - Constitutional Vitals: Temp Pulse Resp BP Pulse Ox 98.5 F 102 14 129/78 98 01/16/19 06:00 01/16/19 06:00 01/16/19 06:00 01/16/19 06:00 01/16/19 06:00 General appearance: Present: A&O X 3, morbidly obese, pleasant, no acute distress, answers questions appropriately - Head Head exam: Present: atraumatic, normocephalic - Eye Eye exam: Present: PERRL, conjuntiva pink, sclera anicteric Pupils: Present: PERRL - Neck Neck exam general surgery: Present: supple, trachea midline. Absent: lymphadenopathy - Respiratory Respiratory exam: Present: CTAB. Absent: accessory muscle use, rales, rhonchi, wheezes Additional comments: Lungs are clear throughout upper [place] with diminished bases. Respiratory effort appears relaxed. No productive cough noted. - Cardiovascular Cardiovascular exam: Present: RRR, +S1, +S2. Absent: diastolic murmur, gallop, rubs, systolic murmur - GI/Abdominal GI/Abdominal exam: Present: normal bowel sounds, soft, no peritoneal signs. Absent: distended, tenderness - Extremities Exam Extremities exam: Present: warm, radial pulses palpable and symmetrical. Absent: calf tenderness, cyanotic, pedal edema Additional comments: Patient has 2+ pitting edema to bilateral lower legs. Noted vascular Cruz. Patient has moderate amount of erythema noted to the left anterior leg no open wounds noted. - Neurological Exam Neurological exam: Present: CN II-XII intact, oriented X3, no focal deficits. Absent: pronater drift, facial droop, speech deficit - Skin Skin exam: Present: dry, intact Internal Medicine: Result - Labs CBC & Chem 7: 01/16/19 05:52 01/13/19 04:50 Labs: Short CBC 01/16/19 Range/Units 05:52 WBC 7.6 (4.3-11.1) K/mcL Hgb 9.0 L (11.5-15.4) g/dL Hct 33.1 L (35.3-44.9) % Plt Count 228 (140-400) K/mcL - ABG Interpretation ABG results: PT/INR, D-dimer PT 27.7 Seconds (9.4-12.1) H 01/16/19 05:52 Consult Discharge Plan - Plan Referrals: Tonja Lambert, VERENA [Primary Care Provider] -
[2019-01-16] MEDS: *HR* Warfarin 5 MG TABLET PO SCH (16:43)
[2019-01-16] MEDS: Tiotropium 18 MCG inhalation IH SCH (21:05)
[2019-01-16] MEDS: (Ropinirole Hcl [Requip Xl] 4 MG) PO SCH (22:47)
[2019-01-17] MEDS: Levalbuterol Neb 0.63 MG/3 ML IH SCH ×4 (05:05→22:14)
[2019-01-17 08:22] LABS: INR 2.9
[2019-01-17 08:24] LABS: Activated Partial Thrombo Time 31.4 Seconds (26.0-36.0)
[2019-01-17] MEDS: Nystatin SUSP 5 ML UD.LIQ PO SCH ×4 (08:31→22:13)
[2019-01-17] MEDS: Cholecalciferol (D-3) 1,000 UNIT TABLET PO SCH (08:32)
[2019-01-17] MEDS: Bumetanide 1 MG TABLET PO SCH (08:32)
[2019-01-17] MEDS: Diltiazem CD (24hr) 180 MG CAPSULE PO SCH (08:32)
[2019-01-17] MEDS: Lactobacillus 1 EACH CAP.SPRINK PO SCH (08:33)
[2019-01-17] MEDS: Cyanocobalamin (B-12) 1,000 MCG TABLET PO SCH (08:33)
[2019-01-17] MEDS: Acetaminophen 325 MG TABLET PO PRN ×3 (08:33→22:15)
[2019-01-17] MEDS: acetaZOLAMIDE 250 MG TABLET PO SCH ×2 (08:33→22:12)
[2019-01-17] MEDS: predniSONE 20 MG TABLET PO SCH (08:34)
[2019-01-17] MEDS: Ascorbic Acid 500 MG TABLET PO SCH (08:34)
[2019-01-17] MEDS: Simethicone 80 MG TAB.CHEW PO SCH ×3 (08:34→22:12)
[2019-01-17] MEDS: Insulin LISPRO 300 UNITS/3 ML VIAL SQ SCH ×4 (08:36→22:12)
[2019-01-17] MEDS: Nystatin POWDER 30 GM BOTTLE TP SCH (08:38)
[2019-01-17] MEDS: ADVAIR IH SCH ×2 (10:12→22:14)
--- NOTE | 2019-01-17 13:26 | Internal Med Progress Note ---
Addendum entered and electronically signed by Raquel Godinez 01/18/19 11:04: I have personally performed a face to face evaluation on this patient. I have reviewed and agree with the care plan. Original Note: Date of Encounter: 01/17/19 Time of Encounter: 13:22 - Assessment and plan (1) Acute on chronic diastolic CHF (congestive heart failure) Current Visit: Yes Status: Acute Assessment and plan: Patient continues to have fine posterior rales to lower [place]. Respiratory effort appears relaxed. Patient continues to have dyspnea with exertion. We will continue patient on current medications to include use of this BiPAP at night. Patient has been noncompliant with BiPAP at night, but states that she will continue to try. Patient being provided a BiPAP at home and will try different mask to help her remain compliant. We will continue on physical therapy. (2) COPD with exacerbation Current Visit: Yes Status: Chronic Assessment and plan: Patient with fine rales heard to posterior lower feels otherwise upper [place] are clear. No productive cough noted. Continued use of BiPAP at night. We will continue with current plan of care (3) Atrial fibrillation Current Visit: Yes Status: Chronic Assessment and plan: No acute issues. Heart rate remains irregular but controlled less than 100 controlled rate. We will continue on current medications. Qualifiers: Atrial fibrillation type: persistent Qualified Code(s): I48.1 - Persistent atrial fibrillation (4) GERD (gastroesophageal reflux disease) Current Visit: Yes Status: Chronic Assessment and plan: No acute issues. Patient denies any reflux. We will continue with current medications Qualifiers: Esophagitis presence: without esophagitis Qualified Code(s): K21.9 - Gastro-esophageal reflux disease without esophagitis (5) Essential hypertension Current Visit: Yes Status: Chronic Assessment and plan: Vital signs stable. We will continue on current medications - Time Spent With Patient less than 15 minutes - Subjective Interval history: Patient appears relaxed and denies any current discomforts or shortness of breat h. Nursing reports patient continues to be noncompliant with wearing BiPAP at night. - Constitutional Vitals: Temp Pulse Resp BP Pulse Ox 98.3 F 93 18 116/64 100 01/17/19 07:14 01/17/19 07:14 01/17/19 07:14 01/17/19 07:14 01/17/19 07:14 General appearance: Present: A&O X 3, morbidly obese, pleasant, no acute distress, answers questions appropriately - Head Head exam: Present: atraumatic, normocephalic - Eye Eye exam: Present: PERRL, conjuntiva pink, sclera anicteric Pupils: Present: PERRL - Neck Neck exam general surgery: Present: supple, trachea midline. Absent: lymphadenopathy - Respiratory Respiratory exam: Present: CTAB. Absent: accessory muscle use, rales, rhonchi, wheezes Additional comments: Lungs are CTA to upper [place] and fine posterior bibasilar rales. RR relaxed. - Cardiovascular Cardiovascular exam: Present: RRR, +S1, +S2. Absent: diastolic murmur, gallop, rubs, systolic murmur - GI/Abdominal GI/Abdominal exam: Present: normal bowel sounds, soft, no peritoneal signs. Absent: distended, tenderness - Extremities Exam Extremities exam: Present: pedal edema, warm, radial pulses palpable and symmetrical. Absent: calf tenderness, cyanotic Additional comments: +2 pedal edema - Neurological Exam Neurological exam: Present: CN II-XII intact, oriented X3, no focal deficits. Absent: pronater drift, facial droop, speech deficit - Skin Skin exam: Present: dry, intact Internal Medicine: Result - Labs CBC & Chem 7: 01/16/19 05:52 01/13/19 04:50 - ABG Interpretation ABG results: PT/INR, D-dimer PT 33.0 Seconds (9.4-12.1) H 01/17/19 07:15 Consult Discharge Plan - Plan Referrals: Tonja Lambert [employer] [Primary Care Provider] -
[2019-01-17] MEDS: *HR* Warfarin 5 MG TABLET PO SCH (17:07)
[2019-01-17] MEDS: (Ropinirole Hcl [Requip Xl] 4 MG) PO SCH (22:13)
[2019-01-17] MEDS: Tiotropium 18 MCG inhalation IH SCH (22:14)
[2019-01-18] MEDS: Levalbuterol Neb 0.63 MG/3 ML IH SCH ×4 (04:55→20:36)
[2019-01-18] MEDS: Acetaminophen 325 MG TABLET PO PRN ×3 (04:55→20:28)
[2019-01-18 05:09] LABS: INR 2.9; Prothrombin Time 32.6 Seconds (9.4-12.1)
[2019-01-18 05:12] LABS: Activated Partial Thrombo Time 35.6 Seconds (26.0-36.0)
[2019-01-18 05:20] LABS: Calcium 9.3 mg/dL (8.6-10.3)
[2019-01-18] MEDS: Insulin LISPRO 300 UNITS/3 ML VIAL SQ SCH ×4 (07:43→21:16)
[2019-01-18] MEDS: Nystatin SUSP 5 ML UD.LIQ PO SCH ×4 (08:07→20:29)
[2019-01-18] MEDS: Ascorbic Acid 500 MG TABLET PO SCH (08:08)
[2019-01-18] MEDS: Simethicone 80 MG TAB.CHEW PO SCH ×3 (08:08→20:28)
[2019-01-18] MEDS: Diltiazem CD (24hr) 180 MG CAPSULE PO SCH (08:08)
[2019-01-18] MEDS: Lactobacillus 1 EACH CAP.SPRINK PO SCH (08:08)
[2019-01-18] MEDS: Cholecalciferol (D-3) 1,000 UNIT TABLET PO SCH (08:08)
[2019-01-18] MEDS: predniSONE 20 MG TABLET PO SCH (08:10)
[2019-01-18] MEDS: acetaZOLAMIDE 250 MG TABLET PO SCH ×2 (08:10→20:28)
[2019-01-18] MEDS: Cyanocobalamin (B-12) 1,000 MCG TABLET PO SCH (08:10)
[2019-01-18] MEDS: Bumetanide 1 MG TABLET PO SCH (08:10)
[2019-01-18] MEDS: Nystatin POWDER 30 GM BOTTLE TP SCH (08:10)
[2019-01-18] MEDS: ADVAIR IH SCH ×2 (10:56→20:31)
--- NOTE | 2019-01-18 11:10 | Internal Med Progress Note ---
Date of Encounter: 01/18/19 Time of Encounter: 11:05 - Subjective Interval history: Assessment and Plan (1) Acute on chronic diastolic CHF (congestive heart failure) Current visit: No Status: Acute Patient admitted to this facility for rehabilitation due to deconditioning secondary to her CHF. Lungs are clear throughout upper [place] but noted diminished throughout lower [place]o. Patient remains currently on Diamox and Bumex. Patient continues to have +2 edema from mid thigh and below but this is improved from previous 4 +.. Edema is worsened in legs by her abdominal pannus. She sits in chair a lot and not elevating her legs when advised. She has developed small areas of cellulitis bilateral ankles. Will start doxyxcycline oral and put in scheduled regular times for elevation of LE and use wraps or kerlex as pt tolerates Pt has some muscle cramps in legs when K is low. She has good renal function. Will add daily K 20 meq and follow lytes closely. We will continue with daily weights. Low protein may complicate this. ( see malabsorption below ) Will add glucerna. pt continues to diurese may be able to decrease diuretic She is now on fluid restrict also. Likely has element of Pulmonary Hypertension Her LVEF is ok Patient remains on Coumadin at this time which will be managed by pharmacy. physical therapy as per evaluation. We will continue with current plan of care (2) COPD with exacerbation Current visit: Yes Status: Chronic Pt on Xopenex nebs. Admitted from [facility], who treated her for exacerbation of her COPD and CHF. Patient admitted for rehab strengthening due to deconditioning. Currently noted to have slight dypnea after exertion of ambulating >25. Endorses Orthopnea. No productive cough noted. Will continue on current meds and bronchodialators. Co ntinue BIPAP at night and prn for dyspnea. Physical therapy eval pending. (3) Chronic Oxygen Dependant Severe COPD needing frequent steroid use cushenoid facies and buf hump (4) Hx of ALISIA and repeated routine noncompliance with BiPAP BiPap is in her room available education has been provided Pt voices understanding of issues She has septal deviation from past broken nose ( says from first ) (5) Atrial fibrillation Current visit: Yes Status: Chronic Patient had elevated rate in past. She is currently good with rate 60s to 80s. Continue on current meds include coumadin continue that watch Inr Heart rate is overall ok but still elevated with exertion afib. BP stable. will add digoxin 0.125 mg Qualifiers: Atrial fibrillation type: persistent Qualified Code(s): I48.1 - Persistent atrial fibrillation (6) nutrient malabsortption, protein deficient, chronic diarrhea, hx prior Sujey and clinical presentation of pancreatic enzyme deficiency. This is complicating her energy and muscle strength and edema. She has been on iron and b12 and calcium adding glucerna once a day start on Pancreatic Enzyme daily discussed with pharmacy 2 caps TID. She remains on ADA Card diet (4) GERD (gastroesophageal reflux disease) Current visit: Yes Status: Chronic She complains of irritation likely from her thrush add nystatin. Continue on PPI. Qualifiers: Esophagitis presence: without esophagitis Qualified Code(s): K21.9 - Gastro-esophageal reflux disease without esophagitis (5) Essential hypertension Current visit: Yes Status: Chronic VSS. Continue on current meds. Interval HX Ms. Olivier is a 68 year old female who was transfer here for deconditioning for Rehab. She has been doing well and getting stronger. She remains noncompliant at times. She has not been elevating her legs as directed and likes to sit in chair . She has developed small areas of cellulitis bilateral ankles. Heart rate is overall ok but still elevated with exertion afib. BP stable. Overnight she states she did not use bipap but denies other new issues. Says she is feeling somewhat stronger. Her HR has been good. Her mood is improved. Edema slight improved BM slight less watery She has past medical history significant for COPD on 4 L home oxygen, rate controlled atrial fibrillation anticoagulated with warfarin, chronic lower extremity edema, diastolic heart failure and likley pulmonary hypertension, chronic diarrhea and malnutrition in spite of obesity, and ALISIA. She and recent discharge on 12/10/2018 after treatment of diastolic heart failure exacerbation, A. fib with RVR, and lower extremity edema. She has been hospitalized many times of recent for a fluid overload state requiring high-dose diuretics. She has also been on anticoagulation, rate control agents and dofetilide for atrial fibrillation with a previous recent attempt for NANCI cardi oversion was deferred due to an abnormal morphology that would have increased her local for an embolic event. EXAM General appears older than stated age. thinning hair and thin skin mild [place] she is oriented and memory intact - Neck Neck exam general surgery: thick neck Present: supple, trachea midline. Absent: lymphadenopathy - Respiratory Respiratory exam: Present: CTAB. occasional soft wheeze Absent: accessory muscle use, rales, rhonchi Additional comments: Lungs are CTA to upper [place] and diminished basilar ov[place]. Patient is morbidily obese and breath sounds are distant to lower [place]. RR is relaxed. No productive cough - Cardiovascular Cardiovascular exam: Present: irregular rhythm, RRR, +S1, +S2. trace systolic murmer Absent: , gallop, rubs Additional comments: HR is irreg with ventricular rate of 70 bpm - GI/Abdominal GI/Abdominal exam: Present: normal bowel sounds, soft, no peritoneal signs. Absent: distended, tenderness - Extremities Exam Extremities exam: Present: pedal edema, warm, radial pulses palpable and symmetrical. Absent: calf tenderness, cyanotic Additional comments: +2 pitting edema to the mid-thigh and below. Small intact blister erythema increase warmth bilateral above ankles - Neurological Exam Neurological exam: Present: CN II-XII intact, oriented X3, no focal deficits. Absent: pronater drift, facial droop, speech deficit - Skin Skin exam: Present: dry, intact - Constitutional Vitals: Temp Pulse Resp BP Pulse Ox 98.2 F 98 16 127/74 99 01/18/19 06:51 01/18/19 06:51 01/18/19 06:51 01/18/19 06:51 01/18/19 06:51 Internal Medicine: Result - Labs CBC & Chem 7: 01/16/19 05:52 01/18/19 05:01 Labs: BMP 01/18/19 05:01 Sodium 136 Potassium 4.0 Chloride 98 Carbon Dioxide 32 H BUN 42 H Creatinine 1.19 Glucose 163 H Calcium 9.3 - ABG Interpretation ABG results: PT/INR, D-dimer PT 32.6 Seconds (9.4-12.1) H 01/18/19 05:01 Consult Discharge Plan - Plan Referrals: Tonja Lambert, [employer] [Primary Care Provider] -
[2019-01-18] MEDS: *HR* Digoxin 0.125 MG TABLET PO SCH (12:03)
[2019-01-18] MEDS: Doxycycline 100 MG CAPSULE PO SCH ×2 (12:03→20:28)
[2019-01-18 12:38] LABS: Bilirubin,Urine Negative (Negative); Blood,Urine Negative (Negative); Clarity,Urine Clear (Clear); Color,Urine Yellow (Yellow); Glucose,Urine (UA) Normal (Normal); Ketones,Urine Negative (Negative); Leukocyte Esterase,Urine Small (Negative); Nitrite,Urine Positive (Negative); Protein,Urine Negative (Neg-Trace); Specific Gravity,Urine 1.015 (1.010-1.025); Urobilinogen,Urine Normal (Normal)
[2019-01-18 13:39] LABS: Bacteria,Urine Moderate per hpf (None-Few)
[2019-01-18] MEDS: *HR* Warfarin 5 MG TABLET PO SCH (17:38)
[2019-01-18] MEDS: (Ropinirole Hcl [Requip Xl] 4 MG) PO SCH (20:29)
[2019-01-18] MEDS: Tiotropium 18 MCG inhalation IH SCH (20:32)
[2019-01-19] MEDS: Acetaminophen 325 MG TABLET PO PRN ×3 (02:59→20:38)
[2019-01-19] MEDS: Levalbuterol Neb 0.63 MG/3 ML IH SCH ×5 (03:12→20:38)
[2019-01-19 07:48] LABS: INR 2.9; Prothrombin Time 33.2 Seconds (9.4-12.1)
[2019-01-19 07:50] LABS: Activated Partial Thrombo Time 34.3 Seconds (26.0-36.0)
[2019-01-19 07:55] LABS: BUN/Creatinine Ratio 41 (6-26); Blood Urea Nitrogen 43 mg/dL (8-23); Calcium 9.3 mg/dL (8.6-10.3); Carbon Dioxide 34 mEq/L (23-29); Chloride 104 mEq/L (98-107); Glucose 165 mg/dL (70-105); Osmolality,Calculated 307 (280-300); Potassium 4.5 mEq/L (3.5-5.1); Sodium 141 mEq/L (136-145); eGFR For Non-African Americans 51 (> 60)
[2019-01-19] MEDS: Bumetanide 1 MG TABLET PO SCH (08:06)
[2019-01-19] MEDS: Lactobacillus 1 EACH CAP.SPRINK PO SCH (08:06)
[2019-01-19] MEDS: acetaZOLAMIDE 250 MG TABLET PO SCH ×2 (08:06→20:36)
[2019-01-19] MEDS: Simethicone 80 MG TAB.CHEW PO SCH ×3 (08:07→20:36)
[2019-01-19] MEDS: Diltiazem CD (24hr) 180 MG CAPSULE PO SCH (08:07)
[2019-01-19] MEDS: Cholecalciferol (D-3) 1,000 UNIT TABLET PO SCH (08:07)
[2019-01-19] MEDS: Cyanocobalamin (B-12) 1,000 MCG TABLET PO SCH (08:08)
[2019-01-19] MEDS: *HR* Digoxin 0.125 MG TABLET PO SCH (08:08)
[2019-01-19] MEDS: Nystatin SUSP 5 ML UD.LIQ PO SCH ×4 (08:08→20:36)
[2019-01-19] MEDS: Nystatin POWDER 30 GM BOTTLE TP SCH (08:08)
[2019-01-19] MEDS: Doxycycline 100 MG CAPSULE PO SCH ×2 (08:08→20:36)
[2019-01-19] MEDS: Insulin LISPRO 300 UNITS/3 ML VIAL SQ SCH ×2 (08:10→11:43)
[2019-01-19] MEDS: Ascorbic Acid 500 MG TABLET PO SCH ×2 (08:19→10:24)
[2019-01-19] MEDS: ADVAIR IH SCH ×2 (10:08→20:40)
--- NOTE | 2019-01-19 11:37 | Internal Med Progress Note ---
Date of Encounter: 01/19/19 Time of Encounter: 10:45 - Subjective Interval history: Assessment and Plan (1) Acute on chronic diastolic CHF (congestive heart failure) Current visit: No Status: Acute Patient admitted to this facility for rehabilitation due to deconditioning secondary to her CHF. Lungs are clear throughout upper [place] but noted diminished throughout lower [place]. Patient remains currently on Diamox and Bumex. Patient continues to have +2 edema from mid thigh and below but this is improved from previous 4 +.. Edema is worsened in legs by her abdominal pannus. She sits in chair a lot and not elevating her legs when advised. She has developed small areas of cellulitis bilateral ankles. Will start doxyxcycline oral and put in scheduled regular times for elevation of LE and use wraps or kerlex as pt tolerates Pt has some muscle cramps in legs when K is low. She has good renal function. Will add daily K 20 meq and follow lytes closely. We will continue with daily weights. Low protein may complicate this. ( see malabsorption below ) Will add glucerna. pt continues to diurese may be able to decrease diuretic She is now on fluid restrict also. Likely has element of Pulmonary Hypertension Her LVEF is ok Patient remains on Coumadin at this time which will be managed by pharmacy. physical therapy as per evaluation. We will continue with current plan of care (2) COPD with exacerbation Current visit: Yes Status: Chronic Pt on Xopenex nebs. Admitted from [facility], who treated her for exacerbation of her COPD and CHF. Patient admitted for rehab strengthening due to deconditioning. Currently noted to have slight dypnea after exertion of ambulating >25. Endorses Orthopnea. No productive cough noted. Will continue on current meds and bronchodialators. Co ntinue BIPAP at night and prn for dyspnea. Physical therapy eval pending. (3) Chronic Oxygen Dependant Severe COPD needing frequent steroid use cushenoid facies and buf hump (4) Hx of ALISIA and repeated routine noncompliance with BiPAP BiPap is in her room available education has been provided Pt voices understanding of issues She has septal deviation from past broken nose ( says from first ) (5) Atrial fibrillation Current visit: Yes Status: Chronic Patient had elevated rate in past. She is currently good with rate 60s to 80s. Continue on current meds include coumadin continue that watch Inr Heart rate is overall ok but still elevated with exertion afib. BP stable. will add digoxin 0.125 mg Qualifiers: Atrial fibrillation type: persistent Qualified Code(s): I48.1 - Persistent atrial fibrillation (6) nutrient malabsortption, protein deficient, chronic diarrhea, hx prior Sujey and clinical presentation of pancreatic enzyme deficiency. This is complicating her energy and muscle strength and edema. This is improving She has been on iron and b12 and calcium glucerna once a day improving on Pancreatic Enzyme daily 2 caps TID. She remains on ADA Card diet (4) GERD (gastroesophageal reflux disease) Current visit: Yes Status: Chronic She complains of irritation likely from her thrush add nystatin. Continue on PPI. Qualifiers: Esophagitis presence: without esophagitis Qualified Code(s): K21.9 - Gastro-esophageal reflux disease without esophagitis (5) Essential hypertension Current visit: Yes Status: Chronic VSS. Continue on current meds. (6) chronic LE edema with early cellulitis bilateral LE Pt was noncompliant with elevation and care of LE now she is on a schedule for elevation of LE seems some improvement started recent on PO doxycycline (she has mult allergies listed) also had low protein levels that exacerbated she seems to be improving with this also (7) UTI mild dysuria pt on doxycycline for cellulitis recent will follow pending culture Interval HX Ms. Olivier is a 68 year old female who was transfer here for deconditioning for Rehab. She has been doing well and getting stronger. She remains noncompliant at times. She has not been elevating her legs as directed and likes to sit in chair . She has developed small areas of cellulitis bilateral ankles. Heart rate is overall ok but still elevated with exertion afib. BP stable. Overnight she states she did not use bipap but denies other new issues. Says she is feeling somewhat stronger. Her HR has been good. Her mood is improved. Edema slight improved BM slight less watery Some dysuria but better today She has past medical history significant for COPD on 4 L home oxygen, rate controlled atrial fibrillation anticoagulated with warfarin, chronic lower extremity edema, diastolic heart failure and likley pulmonary hypertension, chronic diarrhea and malnutrition in spite of obesity, and ALISIA. She and recent discharge on 12/10/2018 after treatment of diastolic heart failure exacerbation, A. fib with RVR, and lower extremity edema. She has been h ospitalized many times of recent for a fluid overload state requiring high-dose diuretics. She has also been on anticoagulation, rate control agents and dofetilide for atrial fibrillation with a previous recent attempt for NANCI cardioversion was deferred due to an abnormal morphology that would have increased her local for an embolic event. EXAM General appears older than stated age. thinning hair and thin skin mild [place] she is oriented and memory intact - Neck Neck exam general surgery: thick neck Present: supple, trachea midline. Absent: lymphadenopathy - Respiratory Respiratory exam: Present: CTAB. occasional soft wheeze Absent: accessory muscle use, rales, rhonchi Additional comments: Lungs are CTA to upper [place] and diminished basilar [place]. Patient is morbidi ly obese and breath sounds are distant to lower [place]. RR is relaxed. No productive cough - Cardiovascular Cardiovascular exam: Present: irregular rhythm, RRR, +S1, +S2. trace systolic murmer Absent: , gallop, rubs Additional comments: HR is irreg with ventricular rate of 70 bpm - GI/Abdominal GI/Abdominal exam: Present: normal bowel sounds, soft, no peritoneal signs. Absent: distended, tenderness - Extremities Exam Extremities exam: Present: pedal edema, warm, radial pulses palpable and symmetrical. Absent: calf tenderness, cyanotic Additional comments: +2 pitting edema to the mid-thigh and below. Small intact blister erythema increase warmth bilateral above ankles - Neurological Exam Neurological exam: Present: CN II-XII intact, oriented X3, no focal deficits. Absent: pronater drift, facial droop, speech deficit - Skin Skin exam: Present: dry, intact - Constitutional Vitals: Temp Pulse Resp BP Pulse Ox 97.8 F 99 18 144/85 99 01/19/19 07:23 01/19/19 07:23 01/19/19 07:23 01/19/19 07:23 01/19/19 07:23 Internal Medicine: Result - Labs CBC & Chem 7: 01/16/19 05:52 01/19/19 07:35 Labs: BMP 01/19/19 07:35 Sodium 141 Potassium 4.5 Chloride 104 Carbon Dioxide 34 H BUN 43 H Creatinine 1.06 Glucose 165 H Calcium 9.3 Urine 01/18/19 Range/Units 12:35 Urine Color Yellow (Yellow) Urine Clarity Clear (Clear) Urine pH 6.0 (5.0-8.0) pH Units Ur Specific [place] 1.015 (1.010-1.025) Urine Protein Negative (Neg-Trace) mg/dL Urine Glucose (UA) Normal (Normal) mg/dL - ABG Interpretation ABG results: PT/INR, D-dimer PT 33.2 Seconds (9.4-12.1) H 01/19/19 07:35 Consult Discharge Plan - Plan Referrals: Tonja Lambert CNP [Primary Care Provider] -
[2019-01-19] MEDS ORDERED: *HR* Warfarin 5 MG TABLET PO SCH (18:00)
[2019-01-19] MEDS: (Ropinirole Hcl [Requip Xl] 4 MG) PO SCH (20:37)
[2019-01-19] MEDS: Tiotropium 18 MCG inhalation IH SCH (20:40)
[2019-01-20] MEDS: Levalbuterol Neb 0.63 MG/3 ML IH SCH ×4 (04:00→21:00)
[2019-01-20] MEDS: Acetaminophen 325 MG TABLET PO PRN ×2 (04:02→21:24)
[2019-01-20 05:14] LABS: Basophils % 0.2 %; Eosinophils # 0.1 K/mcL (0.0-0.6); Eosinophils % 1.5 %; Hematocrit 33.5 % (35.3-44.9); Immature Granulocytes % 0.6 % (0-4); Mean Corpuscular HGB Conc 26.9 g/dL (31.6-35.5); Mean Corpuscular Hemoglobin 23.6 pg (28.0-33.3); Mean Corpuscular Volume 87.7 fL (83.0-100.0); Mean Platelet Volume 12.3 fL (9.4-12.4); Monocytes # 0.6 K/mcL (0.0-1.3); Monocytes % 9.7 %; Neutrophils # 4.7 K/mcL (1.6-8.9); Platelet Count 193 K/mcL (140-400); Red Blood Count 3.82 M/mcL (3.82-4.97); Red Cell Distribution Width 17.6 % (11.5-14.5)
[2019-01-20 05:16] LABS: INR 3.2; Prothrombin Time 35.9 Seconds (9.4-12.1)
[2019-01-20 05:18] LABS: Activated Partial Thrombo Time 35.9 Seconds (26.0-36.0)
[2019-01-20 05:27] LABS: Calcium 9.1 mg/dL (8.6-10.3); Potassium 4.2 mEq/L (3.5-5.1)
[2019-01-20] MEDS: Nystatin SUSP 5 ML UD.LIQ PO SCH (07:36)
[2019-01-20] MEDS: *HR* Digoxin 0.125 MG TABLET PO SCH (08:21)
[2019-01-20] MEDS: Bumetanide 1 MG TABLET PO SCH (08:21)
[2019-01-20] MEDS: Diltiazem CD (24hr) 180 MG CAPSULE PO SCH (08:21)
[2019-01-20] MEDS: Cyanocobalamin (B-12) 1,000 MCG TABLET PO SCH (08:22)
[2019-01-20] MEDS: Doxycycline 100 MG CAPSULE PO SCH ×2 (08:22→21:24)
[2019-01-20] MEDS: acetaZOLAMIDE 250 MG TABLET PO SCH ×2 (08:22→21:28)
[2019-01-20] MEDS: Simethicone 80 MG TAB.CHEW PO SCH ×3 (08:22→21:24)
[2019-01-20] MEDS: Ascorbic Acid 500 MG TABLET PO SCH (08:23)
[2019-01-20] MEDS: Cholecalciferol (D-3) 1,000 UNIT TABLET PO SCH (08:23)
[2019-01-20] MEDS: Lactobacillus 1 EACH CAP.SPRINK PO SCH (08:23)
[2019-01-20] MEDS: Nystatin POWDER 30 GM BOTTLE TP SCH (08:25)
--- NOTE | 2019-01-20 10:22 | Internal Med Progress Note ---
Addendum entered and electronically signed by Raquel Godinez 01/21/19 14:28: Original Note: Date of Encounter: 01/20/19 Time of Encounter: 10:20 - Assessment and plan (1) Acute on chronic diastolic CHF (congestive heart failure) Current Visit: Yes Status: Acute Assessment and plan: Patient voicing concerns about increased pedal edema. Patient noted to have a blister to right lateral leg. Patient's weights were reviewed she remains stable. Patient has been remaining in chair most of day and sleeps at night in the chair due to orthopnea. Lungs are clear throughout upper [place] but diminished to bases. We will obtain a chest x-ray for further evaluation. We will increase patient's current Bumex 2 twice a day. We will continue with daily weights. (2) COPD with exacerbation Current Visit: Yes Status: Chronic Assessment and plan: Patient with diminished breath sounds to lower [place], otherwise upper [place] are clear. No productive cough noted. Continued refusal to use of BiPAP at night. We will continue with current plan of care. Patient noted to ambulate in room with no dyspnea noted (3) Atrial fibrillation Current Visit: Yes Status: Chronic Assessment and plan: No acute issues. Heart rate remains irregular but controlled less than 100 controlled rate. We will continue on current medications. Qualifiers: Atrial fibrillation type: persistent Qualified Code(s): I48.1 - Persistent atrial fibrillation (4) GERD (gastroesophageal reflux disease) Current Visit: Yes Status: Chronic Assessment and plan: No acute issues. Patient denies any reflux. We will continue with current medications Qualifiers: Esophagitis presence: without esophagitis Qualified Code(s): K21.9 - Gastro-esophageal reflux disease without esophagitis (5) Essential hypertension Current Visit: Yes Status: Chronic Assessment and plan: Vital signs stable. We will continue on current medications - Time Spent With Patient less than 15 minutes - Subjective Interval history: Patient appears relaxed and denies any current discomforts or shortness of breath. Nursing reports patient continues to be noncompliant with wearing BiPAP at night. Patient voiced concerns about increased pedal edema. Patient has a fluid blister on the right lateral leg. Patient's weights were reviewed which remains stable at 163 kg. Patient denies any dyspnea or chest discomforts. Denies any productive cough. Patient endorses orthopnea and states that she prefers to sleep in the chair. Patient states that she sleeps in a recliner at home. Patient informed that part of her pedal edema made be due to the fact that his dependent edema from being in a chair position all day. Patient has had Vicente wraps to bilateral legs but currently has been refusing wraps due to comfort - Constitutional Vitals: Temp Pulse Resp BP Pulse Ox 98.6 F 90 16 134/82 100 01/20/19 06:52 01/20/19 06:52 01/20/19 06:52 01/20/19 06:52 01/20/19 06:52 General appearance: Present: A&O X 3, morbidly obese, pleasant, no acute distress, answers questions appropriately - Head Head exam: Present: atraumatic, normocephalic - Eye Eye exam: Present: PERRL, conjuntiva pink, sclera anicteric Pupils: Present: PERRL - Neck Neck exam general surgery: Present: supple, trachea midline. Absent: lymphadenopathy - Respiratory Respiratory exam: Present: CTAB. Absent: accessory muscle use, rales, rhonchi, wheezes Additional comments: Lungs are clear throughout upper [place] with diminished breath sounds to lower half. Patient is obese with breath sounds distant at bases. No productive cough. Respiratory effort appears relaxed. Patient ambulating in room with no dyspnea. Patient endorses orthopnea - Cardiovascular Cardiovascular exam: Present: RRR, +S1, +S2. Absent: diastolic murmur, gallop, rubs, systolic murmur - GI/Abdominal GI/Abdominal exam: Present: normal bowel sounds, soft, no peritoneal signs. Absent: distended, tenderness - Extremities Exam Extremities exam: Present: warm, radial pulses palpable and symmetrical. Absent: calf tenderness, cyanotic, pedal edema - Neurological Exam Neurological exam: Present: CN II-XII intact, oriented X3, no focal deficits. Absent: pronater drift, facial droop, speech deficit - Skin Skin exam: Present: dry, intact Internal Medicine: Result - Labs CBC & Chem 7: 01/20/19 04:45 01/20/19 04:45 Labs: Short CBC 01/20/19 Range/Units 04:45 WBC 6.5 (4.3-11.1) K/mcL Hgb 9.0 L (11.5-15.4) g/dL Hct 33.5 L (35.3-44.9) % Plt Count 193 (140-400) K/mcL Neutrophils # 4.7 (1.6-8.9) K/mcL BMP 01/20/19 04:45 Sodium 139 Potassium 4.2 Chloride 102 Carbon Dioxide 32 H BUN 45 H Creatinine 1.18 Glucose 194 H Calcium 9.1 - ABG Interpretation ABG results: PT/INR, D-dimer PT 35.9 Seconds (9.4-12.1) H 01/20/19 04:45 Consult Discharge Plan - Plan Referrals: Tonja Lambert, [employer] SUPPORT LIAISON [Primary Care Provider] -
[2019-01-20] MEDS: ADVAIR IH SCH ×2 (11:21→21:00)
[2019-01-20] MEDS: metOLazone 5 MG TABLET PO SCH (13:06)
[2019-01-20] MEDS: Tiotropium 18 MCG inhalation IH SCH (21:00)
[2019-01-20] MEDS: (Ropinirole Hcl [Requip Xl] 4 MG) PO SCH (21:25)
[2019-01-21] MEDS: Levalbuterol Neb 0.63 MG/3 ML IH SCH ×2 (03:58→09:48)
[2019-01-21] MEDS: Acetaminophen 325 MG TABLET PO PRN ×2 (03:58→09:04)
[2019-01-21 05:48] LABS: Prothrombin Time 33.7 Seconds (9.4-12.1)
[2019-01-21 05:51] LABS: Activated Partial Thrombo Time 37.1 Seconds (26.0-36.0)
[2019-01-21 05:59] LABS: Calcium 9.2 mg/dL (8.6-10.3); Potassium 4.1 mEq/L (3.5-5.1)
[2019-01-21 07:12] VITALS: BP 107/73
[2019-01-21] MEDS: Lactobacillus 1 EACH CAP.SPRINK PO SCH (09:02)
[2019-01-21] MEDS: *HR* Digoxin 0.125 MG TABLET PO SCH (09:03)
[2019-01-21] MEDS: Bumetanide 1 MG TABLET PO SCH (09:03)
[2019-01-21] MEDS: Diltiazem CD (24hr) 180 MG CAPSULE PO SCH (09:03)
[2019-01-21] MEDS: metOLazone 5 MG TABLET PO SCH (09:03)
[2019-01-21] MEDS: acetaZOLAMIDE 250 MG TABLET PO SCH (09:03)
[2019-01-21] MEDS: Doxycycline 100 MG CAPSULE PO SCH (09:03)
[2019-01-21] MEDS: Ascorbic Acid 500 MG TABLET PO SCH (09:03)
[2019-01-21] MEDS: Cholecalciferol (D-3) 1,000 UNIT TABLET PO SCH (09:03)
[2019-01-21] MEDS: Simethicone 80 MG TAB.CHEW PO SCH (09:04)
[2019-01-21] MEDS: Cyanocobalamin (B-12) 1,000 MCG TABLET PO SCH (09:04)
[2019-01-21] MEDS: Nystatin POWDER 30 GM BOTTLE TP SCH (09:05)
[2019-01-21] MEDS: ADVAIR IH SCH (09:47)
--- NOTE | 2019-01-21 13:08 | Physician Discharge Referral ---
Addendum entered and electronically signed by Raquel Godinez 01/21/19 14:27: I have personally performed a face to face evaluation on this patient. I have reviewed and agree with the care plan. Original Note: Home Health/Hosp Referral Info Transfer to: Home Health Provider in Charge Post Discharge: PCP - Diagnosis (1) Atrial fibrillation Priority: Secondary Status: Chronic (2) Morbid obesity with BMI of 60.0-69.9, adult Priority: Secondary Status: Chronic (3) Acute on chronic diastolic CHF (congestive heart failure) Priority: Primary Status: Acute (4) COPD (chronic obstructive pulmonary disease) Priority: Secondary Status: Chronic - Respiratory Orders Oxygen / L per min Smoking Cessation: Smoking cessation has been advised. For more information, call the [place] Tobacco Quit Line at 5-139-XZBS-NOW. - Diet/Nutrition Diet/Nutrition Orders: Regular, No Added Salt (KARTHIKEYAN) - Activity Activity Orders: Walker - Services Needed Following services are medically necessary services: Nursing, Home Health Aide, Physical Therapy, Occupational Therapy - Transfer Medications Home Medications: Alendronate Sodium [Fosamax] 70 mg PO WE 02/17/16 [History] Ascorbate Calcium [Vitamin C] 500 mg PO DAILY 02/17/16 [History] Tiotropium [Spiriva] 2 puff PO HS 02/17/16 [History] Oxygen 4 l NS CONT 02/13/17 [History] Fluticasone/Salmeterol [Advair 250-50 Diskus] 1 puff IH BID #1 blst.w.dev 03/08/17 [Rx] Montelukast [Singulair] 10 mg PO DAILY 03/21/17 [History] Calcium Carbonate [Calcium] 600 mg PO DAILY 08/28/17 [History] Acetaminophen/Diphenhydramine [Percogesic 325-12.5 mg Tablet] 2 tab PO HS 11/08/17 [History] Cholecalciferol (D-3) [Vitamin D] 1,000 unit PO DAILY 07/04/18 [History] Lisinopril 2.5 mg PO DAILY 07/04/18 [History] Omeprazole [PriLOSEC] 40 mg PO DAILY #30 cap 09/04/18 [Rx] Ropinirole HCl [Requip Xl] 4 mg PO HS 09/24/18 [History] Dexlansoprazole [Dexilant] 60 mg PO DAILY 10/26/18 [History] Cyanocobalamin (B-12) [Vitamin B12] 1,000 mcg PO DAILY 10/27/18 [History] Dofetilide [Tikosyn] 0.5 mg PO 0900,2100 capsule 11/01/18 [Rx] Ferrous Sulfate 325 mg PO DAILY tablet 11/01/18 [Rx] Diltiazem CD (24hr) [Cardizem CD] 360 mg PO DAILY #60 cap.er.24h 12/06/18 [Rx] Polyethylene Glycol 3350 [MiraLAX] 17 gm PO DAILY PRN powd.pack 12/06/18 [Rx] Warfarin [Coumadin] 5 mg PO DAILY #30 tablet 12/09/18 [Rx] Bumetanide [Bumex] 1 mg PO DAILY #30 tablet 01/10/19 [Rx] Levalbuterol Neb [Xopenex Neb] 0.63 mg IH [id number] #30 vial.neb 01/10/19 [Rx] acetaZOLAMIDE [Diamox] 250 mg PO BID #60 tablet 01/10/19 [Rx] Allergies/Adverse Reactions: Allergy/AdvReac Type Severity Reaction Status Date / Time albuterol Allergy See Verified 10/10/18 17:30 Comments aspirin [ASA] Allergy Difficulty Verified 10/10/18 17:30 Breathing Penicillins Allergy Hives Verified 10/10/18 17:30 Sulfa (Sulfonamide Allergy Rash Verified 10/10/18 17:30 Antibiotics) Certification: Further, I certify that my clinical findings support that this patient is homebound (i.e. absences from home require considerable and taxing effort and are for medical reasons or zoroastrian services or infrequently or short duration when for other reasons) because: Homebound Reason: Patient requires assistance of a person or device to safely leave home, Leaving home requires considerable and taxing effort due to condition Attestation: My signature below is to certify that this patient is under my care and that I, or nurse practitioner, or a physician's fire control assistant working with me, has a [id number] encounter with this patient.
--- NOTE | 2019-01-21 13:18 | Discharge Summary ---
Addendum entered and electronically signed by Raquel Godinez 01/21/19 14:27: Original Note: Orders not resulted at time of discharge: Pending orders 01/18/19 12:35 Culture,Urine [RM] Routine 01/22/19 04:00 Activated Partial Thrombo Time [COAG] DAILY BMP [Basic Metabolic Panel] AM 0400 Prothrombin Time INR [COAG] DAILY 01/23/19 04:00 Activated Partial Thrombo Time [COAG] DAILY BMP [Basic Metabolic Panel] AM 0400 Prothrombin Time INR [COAG] DAILY 01/24/19 04:00 Activated Partial Thrombo Time [COAG] DAILY BMP [Basic Metabolic Panel] AM 0400 Prothrombin Time INR [COAG] DAILY 01/25/19 04:00 Activated Partial Thrombo Time [COAG] DAILY BMP [Basic Metabolic Panel] AM 0400 Prothrombin Time INR [COAG] DAILY 01/26/19 04:00 BMP [Basic Metabolic Panel] AM 0400 01/27/19 04:00 BMP [Basic Metabolic Panel] AM 0400 Basic Metabolic Panel MO Complete Blood Count [HEME] MO 01/28/19 04:00 BMP [Basic Metabolic Panel] AM 0400 01/29/19 04:00 BMP [Basic Metabolic Panel] AM 0400 01/30/19 04:00 BMP [Basic Metabolic Panel] AM 0400 01/31/19 04:00 BMP [Basic Metabolic Panel] AM 0400 02/01/19 04:00 BMP [Basic Metabolic Panel] AM 0400 02/02/19 04:00 BMP [Basic Metabolic Panel] AM 0400 02/03/19 04:00 BMP [Basic Metabolic Panel] AM 0400 02/04/19 04:00 BMP [Basic Metabolic Panel] AM 0400 02/05/19 04:00 BMP [Basic Metabolic Panel] AM 0400 02/06/19 04:00 BMP [Basic Metabolic Panel] AM 0400 02/07/19 04:00 BMP [Basic Metabolic Panel] AM 0400 02/08/19 04:00 BMP [Basic Metabolic Panel] AM 0400 02/09/19 04:00 BMP [Basic Metabolic Panel] AM 0400 02/10/19 04:00 BMP [Basic Metabolic Panel] AM 0400 02/11/19 04:00 BMP [Basic Metabolic Panel] AM 0400 02/12/19 04:00 BMP [Basic Metabolic Panel] AM 0400 19 04:00 BMP [Basic Metabolic Panel] AM 04002/14/19 04:00 BMP [Basic Metabolic Panel] AM 04002/15/19 04:00 BMP [Basic Metabolic Panel] AM 04002/16/19 04:00 BMP [Basic Metabolic Panel] AM 04002/17/19 04:00 BMP [Basic Metabolic Panel] AM 04002/18/19 04:00 BMP [Basic Metabolic Panel] AM 04002/19/19 04:00 BMP [Basic Metabolic Panel] AM 04002/20/19 04:00 BMP [Basic Metabolic Panel] AM 04002/21/19 04:00 BMP [Basic Metabolic Panel] AM 04002/22/19 04:00 BMP [Basic Metabolic Panel] AM 39902/23/19 04:00 BMP [Basic Metabolic Panel] AM 399 Date of Encounter: 01/21/19 Time of Encounter: 13:08 - Discharge Diagnosis (1) Atrial fibrillation Priority: Secondary Status: Chronic Comments: Rate and rhythm controlled. Continue Coumadin. Follow up with PCP. Qualifiers: Atrial fibrillation type: paroxysmal Qualified Code(s): I48.0 - Paroxysmal atrial fibrillation (2) Morbid obesity with BMI of 60.0-69.9, adult Priority: Secondary Status: Chronic (3) Acute on chronic diastolic CHF (congestive heart failure) Priority: Primary Status: Acute Comments: Improving. Continue current medication. Follow up with PCP. (4) COPD (chronic obstructive pulmonary disease) Priority: Primary Status: Chronic Comments: Stable. Continue oxygen at 4 L per nasal cannula. All up with PCP. Qualifiers: COPD type: COPD with acute exacerbation Qualified Code(s): J44.1 - Chronic obstructive pulmonary disease with (acute) exacerbation Hospital course: Ms. Olivier is a 68 year old female discharging to home with after being admitted for deconditioning due to CHF and COPD. Patient has been stable. Continues to have edema to bilateral lower extremities, currently blanca wrapped. Patient denies any shortness of breath or chest pain. Denies fever, chills, nausea vomiting or diarrhea. Has had urinary frequency. Positive for UTI. Will start Macrobid for 7 days. Educated importance of wearing BiPAP, oxygenating properly and continuing to elevate feet and low-sodium, low fat diet. Discharge discussed with: patient, family, nurse, social work Time spent discussing smoking cessation with patient: 3 to 10 minutes - Time Spent with Patient Total time spent providing and/or coordinating discharge services: Less than 30 minutes - Discharge Medications Prescriptions: No Action Alendronate Sodium [Fosamax] 70 mg PO WE Tiotropium [Spiriva] 2 puff PO HS Ascorbate Calcium [Vitamin C] 500 mg PO DAILY Oxygen 4 l NS CONT Fluticasone/Salmeterol [Advair 250-50 Diskus] 1 puff IH BID #1 blst.w.dev Montelukast [Singulair] 10 mg PO DAILY Calcium Carbonate [Calcium] 600 mg PO DAILY Acetaminophen/Diphenhydramine [Percogesic 325-12.5 mg Tablet] 2 tab PO HS Cholecalciferol (D-3) [Vitamin D] 1,000 unit PO DAILY Lisinopril 2.5 mg PO DAILY Omeprazole [PriLOSEC] 40 mg PO DAILY #30 cap Ropinirole HCl [Requip Xl] 4 mg PO HS Dexlansoprazole [Dexilant] 60 mg PO DAILY Cyanocobalamin (B-12) [Vitamin B12] 1,000 mcg PO DAILY Ferrous Sulfate 325 mg PO DAILY tablet Dofetilide [Tikosyn] 0.5 mg PO 0900,2100 capsule Diltiazem CD (24hr) [Cardizem CD] 360 mg PO DAILY #60 cap.er.24h Polyethylene Glycol 3350 [MiraLAX] 17 gm PO DAILY PRN powd.pack PRN Reason: Constipation Warfarin [Coumadin] 5 mg PO DAILY #30 tablet Levalbuterol Neb [Xopenex Neb] 0.63 mg IH [id number] #30 vial.neb acetaZOLAMIDE [Diamox] 250 mg PO BID #60 tablet Bumetanide [Bumex] 1 mg PO DAILY #30 tablet Home Medications: Alendronate Sodium [Fosamax] 70 mg PO WE 02/17/16 [History] Ascorbate Calcium [Vitamin C] 500 mg PO DAILY 02/17/16 [History] Tiotropium [Spiriva] 2 puff PO HS 02/17/16 [History] Oxygen 4 l NS CONT 02/13/17 [History] Fluticasone/Salmeterol [Advair 250-50 Diskus] 1 puff IH BID #1 blst.w.dev 03/08/17 [Rx] Montelukast [Singulair] 10 mg PO DAILY 03/21/17 [History] Calcium Carbonate [Calcium] 600 mg PO DAILY 08/28/17 [History] Cholecalciferol (D-3) [Vitamin D] 1,000 unit PO DAILY 07/04/18 [History] Lisinopril 2.5 mg PO DAILY 07/04/18 [History] Omeprazole [PriLOSEC] 40 mg PO DAILY #30 cap 09/04/18 [Rx] Ropinirole HCl [Requip Xl] 4 mg PO HS 09/24/18 [History] Dexlansoprazole [Dexilant] 60 mg PO DAILY 10/26/18 [History] Cyanocobalamin (B-12) [Vitamin B12] 1,000 mcg PO DAILY 10/27/18 [History] Dofetilide [Tikosyn] 0.5 mg PO 0900,2100 capsule 11/01/18 [Rx] Ferrous Sulfate 325 mg PO DAILY tablet 11/01/18 [Rx] Diltiazem CD (24hr) [Cardizem CD] 360 mg PO DAILY #60 cap.er.24h 12/06/18 [Rx] Polyethylene Glycol 3350 [MiraLAX] 17 gm PO DAILY PRN powd.pack 12/06/18 [Rx] Warfarin [Coumadin] 5 mg PO DAILY #30 tablet 12/09/18 [Rx] Bumetanide [Bumex] 1 mg PO DAILY #30 tablet 01/10/19 [Rx] Levalbuterol Neb [Xopenex Neb] 0.63 mg IH [id number] #30 vial.neb 01/10/19 [Rx] acetaZOLAMIDE [Diamox] 250 mg PO BID #60 tablet 01/10/19 [Rx] Acetaminophen [Tylenol] 650 mg PO Q4HR PRN tablet 01/21/19 [Rx] Digoxin [Lanoxin] 0.125 mg PO DAILY #14 tablet 01/21/19 [Rx] DiphenhydraMINE [Benadryl] 25 mg PO HS capsule 01/21/19 [Rx] Doxycycline 100 mg PO BID #14 capsule 01/21/19 [Rx] Lactobacillus [Culturelle] 2 each PO DAILY cap.sprink 01/21/19 [Rx] Nitrofurantoin (BID) [Macrobid] 100 mg PO BIDWM #14 capsule 01/21/19 [Rx] Nystatin POWDER [Nystop] 1 appl TP DAILY #1 bottle 01/21/19 [Rx] Potassium Chloride 20 meq PO DAILY #7 tab.er.prt 01/21/19 [Rx] Simethicone [Gas-X] 80 mg PO TID tab.chew 01/21/19 [Rx] metOLazone [Zaroxolyn] 5 mg PO 0800 #14 tablet 01/21/19 [Rx] Allergies/Adverse Reactions: Allergy/AdvReac Type Severity Reaction Status Date / Time albuterol Allergy See Verified 10/10/18 17:30 Comments aspirin [ASA] Allergy Difficulty Verified 10/10/18 17:30 Breathing Penicillins Allergy Hives Verified 10/10/18 17:30 Sulfa (Sulfonamide Allergy Rash Verified 10/10/18 17:30 Antibiotics) Date of admission: 01/10/19 13:48 Primary care physician: Tonja Lambert CNP Consults: 01/10/19 15:17 Consult to Occupational Therapy [CONS] Routine Comment: Swing bed for deconditioning. Reason for Consult: Swing bed for deconditioning. Does patient have active BEDREST order?: No Is patient medically & hemodynamically stable?: Yes Consult to Physical Therapy [CONS] Routine Comment: Swing bed for deconditioning. Reason for Consult: Swing bed for deconditioning. Does patient have active BEDREST order?: No Is patient medically & hemodynamically stable?: Yes Consult to Recreational Therapy [CONS] Routine Comment: Consult to Certified Retinal Angiographer [CONS] Routine Reason for SW Consult: Swing bed for deconditioning. 01/14/19 08:36 Consult to Psychology [CONS] Routine Consulting Provider: Diamond Watson Reason for Consult: Poor self-esteem and feeling pressured to comply with medical regimen. Call Completed: No Discharging clinician: Raquel Godinez Anticipated date of discharge: 01/21/19 - Constitutional Vitals: Temp Pulse Resp BP Pulse Ox 97.9 F 84 19 107/73 98 01/21/19 07:12 01/21/19 07:12 01/21/19 09:51 01/21/19 07:12 01/21/19 09:51 General appearance: Present: A&O X 3, morbidly obese, pleasant, no acute distress, answers questions appropriately - Head Head exam: Present: atraumatic, normocephalic - Eye Eye exam: Present: PERRL, conjuntiva pink, sclera anicteric Pupils: Present: PERRL - Neck Neck exam general surgery: Present: supple, trachea midline. Absent: lymphadenopathy - Respiratory Respiratory exam: Present: CTAB. Absent: accessory muscle use, rales, rhonchi, wheezes - Cardiovascular Cardiovascular exam: Present: irregular rhythm, +S1, +S2. Absent: diastolic murmur, gallop, rubs, systolic murmur - GI/Abdominal GI/Abdominal exam: Present: normal bowel sounds, soft, no peritoneal signs. Absent: distended, tenderness - Extremities Exam Extremities exam: Present: pedal edema, warm, radial pulses palpable and symmetrical. Absent: calf tenderness, cyanotic Additional comments: Pitting edema bilateral lower extremities 2+ - Neurological Exam Neurological exam: Present: CN II-XII intact, oriented X3, no focal deficits. Absent: pronater drift, facial droop, speech deficit - Skin Skin exam: Present: dry, intact - Patient Status Disposition: Home Health Service Condition: Fair Functional capacity at discharge: uses cane/walker Overall status at discharge: patient is progressing back to baseline - Discharge Instructions Instructions: Heart Failure (DC), Atrial Fibrillation (DC), Diabetes Mellitus Type 2 in Adults (DC), Chronic Obstructive Pulmonary Disease (DC) Follow Up With: Tonja Lambert PASTRY SUPERVISOR [Primary Care Provider] - 01/28/19 (appt made per pt ) - Diet and Activity Activity: ambulate only with your walker, as per physical therapy Diet: diabetic diet
[2019-01-21] MEDS ORDERED: Nitrofurantoin (BID) 100 MG CAPSULE PO SCH (17:00)
[2019-01-21] MEDS ORDERED: *HR* Warfarin 5 MG TABLET PO ONE (18:00)
== END 2019-01-21 14:20 | disposition home health service (06) | DRG 292 ==
LOC: INPGRE 01-10 13:48